=== PATIENT | female | born 1980 | race Two or more races ===

== ENCOUNTER 2024-08-16 10:26 | Emergency (ER) | payer MEDICAID, SELFPAY ==
[2024-08-16 10:28] VITALS: BMI 25.0
[2024-08-16 10:44] VITALS: BP 100/72; PULSE 88; RESP 19; TEMP 37.2; O2SAT 99
[2024-08-16 10:45] VITALS: BMI 22.5
[2024-08-16 11:48] LABS: Strep A Rapid Negative (Negative)
--- NOTE | 2024-08-16 12:58 | EDNOTE_ITS ---
<Statement entered by Annmarie Dove MD - 08/17/24 07:39> As co-signing physician, I was present and available for consult prn. I concur with the plan and care as documented by the midlevel provider. Upper Respiratory Inf. RME/HPI General Chief Complaint: Flu Like Symptoms Stated Complaint: COUGH, CHILL, BODY ACHES Time Seen by Provider: 08/16/24 10:36 Source: patient Arrival date/time: 08/16/24 10:26 This is a 43-year-old female presents to the emergency department with complaints of intermittent cough, body aches for 1 day. Does report her child was sick with similar symptoms. Denies shortness of breath, wheezing no fever. Mode of arrival: ambulatory Limitations: no limitations Related Data Home Medications ?Medication ?Instructions ?Recorded ?Confirmed metformin 850 mg tablet 850 mg PO BID Diabetes #0 ta bs 11/07/14 (Glucophage) insulin glargine 100 unit/mL 6 unit subcut HS Diabetes #0 vials 12/09/14 subcutaneous solution (Lantus U-100 Insulin) Vitamin * 1 tab PO QDAY #0 tabs ferrous sulfate 325 mg (65 mg 325 mg PO QDAY #0 tabs 0 03/11/15 iron) tablet (Feosol) Previous Rx's ?Medication ?Instructions ?Recorded ibuprofen 400 mg tablet 800 mg (2 x 400 mg) PO Q8HR PRN 04/22/15 Patient rated pain 3 to 6 #30 tabs Cyclobenzaprine * (FLEXERIL *) 10 mg PO Q8HR PRN spasm #20 tabs 10/22/15 ibuprofen 600 mg tablet 600 mg PO Q6HR PRN PAIN #60 tabs 10/22/15 tramadol 50 mg tablet (Ultram) 50 mg PO Q6HR PRN sever e pain #30 10/22/15 tabs naproxen 500 mg tablet 500 mg PO BID PRN pain #30 t abs 03/09/23 azithromycin 250 mg tablet 250 mg PO QDAY 5 days #6 ta bs 08/16/24 Allergies Allergy/AdvReac Type Severity Reaction Status Date / Time vancomycin Allergy Intermediate Rash Verified 08/16/24 10:27 Review of Systems Review of Systems Systems Reviewed: All systems reviewed, normal except as documented Narrative Review of Systems: Gen: No fever, no chills, no weight loss, positive body aches EYES: No discharge, no visual changes, no pain HEENT: No ear pain, positive congestion, no sore throat PULM: No shortness of breath, positive cough, no congestion CV: No chest pain, no dyspnea on exertion, no palpitations GI: No nausea, no vomiting, no diarrhea, no pain, no constipation : No frequency, no urgency, no dysuria Musc/skel: No joint pain, no back pain Skin: No rash Psyc: No hallucinations, no depression Heme/Lymph: No easy bleeding or bruising tendencies Neuro: No weakness, no headache ED Exam General Limitations: Present no limitations General appearance: Present alert and in no apparent distress Head Head exam: Present atraumatic Eye Eye exam: Present normal appearance, PERRL and EOMI ENT ENT exam: Present normal exam, normal oropharynx and mucous membranes moist Neck Neck exam: Present normal inspection, full ROM and trachea midline Chest Chest inspection: Present normal inspection and symmetric chest wall rise Respiratory Respiratory exam: Present normal lung sounds bilaterally Cardiovascular Cardiovascular exam: Present regular rate, normal rhythm and normal heart sounds Abdominal Exam Abdominal exam: Present soft and normal bowel sounds Extremities Exam Extremities exam: Present normal inspection and full ROM Back Exam Back exam: Present normal inspection and full ROM Neurological Exam Neurological exam: Present alert, oriented X3 and CN II-XII intact Psychiatric Psychiatric exam: Present normal affect and normal mood Skin Skin exam: Present warm, dry, intact and normal color Course Quality Measures none Orders Category Date Time Status Bedside Influenza A&B Antigen Test NOW Care 08/16/24 10:57 Completed Strep A Rapid Stat Lab 08/16/24 11:00 Completed Vital Signs Vital signs: Vital Signs Temperature 99.0 F 08/16/24 10:44 Pulse Rate 88 08/16/24 10:44 Respiratory Rate 19 08/16/24 10:44 Blood Pressure 100/72 08/16/24 10:44 Pulse Oximetry (%) 99 08/16/24 10:44 Oxygen Delivery Method Room Air 08/16/24 10:44 Upper Respiratory Infection MDM Narrative MDM Narrative:: Patient symptoms consistent with upper respiratory infection. [id number] negative for COVID, influenza A and B. Discussed that viral URIs are a self- limiting disease, and can taking up to 2 weeks to resolve. Ibuprofen prn fevers. Fluids, soups, tea, honey advised. Use humidifier at night. Patient does not appear septic or toxic. Vital signs stable. Advise patient if symptoms do no improved or worsen to return to the emergency room. Patient data External records reviewed:: [facility] previous records Clinical information provided by:: patient and parent Social determinants that could affect healthcare access:: none Patient has the following chronic illnesses:: None on How is presenting disease/condition affected by chronic disease/condition?: no chronic disease Evaluation data The following diagnostics were reviewed and interpreted by me:: lab results Lab and/or radiology exams considered but not ordered:: No Interpretation Summary: Bedside strep and influenza negative Medications / Prescriptions Medications or Prescriptions considered but not ordered:: Considered Medication administrations:: None Consultations Consultation(s) initiated? (list below): No Diagnosis Upper Respiratory Differential Diagnosis: upper respiratory infection, viral infection, bronchitis, influenza and pharyngitis Most likely diagnosis given after review of the tests above:: URI Admission Indicated Admission indicated?: not indicated Admission Request Was there a request for admission?: No Disposition Plan Disposition Plan: Discharge Discharge Attestation Discharge Attestation: The patient and all family members were given an opportunity to ask questions and understood the discharge instructions. Discharge instructions specifically effects, indications for sooner follow up or return to the emergency department, and the expected course of current diagnosis. Patient condition: Stable Discharge Plan Plan Patient Disposition: HOME (Self Care) Patient condition on transfer: Stable Prescriptions/Referrals Prescriptions/Med Rec: New azithromycin 250 mg tablet 250 mg PO QDAY 5 Days Qty: 6 0RF Rx Instructions: 500 mg p.o. day 1, 250 mg p.o. daily for 4 days No Action metformin [Glucophage] 850 MG tablet 850 mg PO BID Qty: 0 insulin glargine [Lantus U-100 Insulin] 100 U/ML solution 6 unit Sub-Q HS Qty: 0 ferrous sulfate [Feosol] 1 TAB tablet 325 mg PO QDAY Qty: 0 Vitamin * 1 EACH tablet 1 tab PO QDAY Qty: 0 ibuprofen 400 MG tablet 800 mg PO Q8HR PRN (Reason: Patient rated pain 3 to 6) Qty: 30 0RF tramadol [Ultram] 50 MG tablet 50 mg PO Q6HR PRN (Reason: severe pain) Qty: 30 0RF Rx Instructions: FOR PAIN, NOT TO EXCEED 8 TABS IN 24 HRS ibuprofen 600 MG tablet 600 mg PO Q6HR PRN (Reason: PAIN) Qty: 60 0RF Cyclobenzaprine * (FLEXERIL *) 10 MG tablet 10 mg PO Q8HR PRN (Reason: spasm) Qty: 20 0RF naproxen 500 mg tablet 500 mg PO BID PRN (Reason: pain) Qty: 30 0RF Referrals: Robbie Sharpe PA-C [Primary Care Provider] - In 1 week Problem List Clinical Impression: Upper respiratory infection Patient/Caregiver Discharge Instructions Discharge Activity: activity as tolerated Education Materials: Preventing Common Respiratory ... Additional Instructions: Contin?e tomando medicamentos de venta anitha Becky un seguimiento con [facility] m?dico de cabecera. Aumentar la ingesta de l?quidos. Se recomienda aumentar la hidrataci?n, el t? caliente y la sopa de arroz con paramjit pueden ayudar a aliviar el dolor de garganta. Por favor becky un seguimiento con [facility] cl?talha de seguimiento de 3 d?as. Si desarrolla alg?n tipo de dificultad respiratoria o cambio en [facility] condici?n, dir?dylan inmediatamente al departamento de emergencias m?s cercano. [facility] examen de infection de garganta salio NEGATIVA Print Language: Ethiopian Stand Alone Forms: [employer] Award Info., Patient Portal Info Letter PA/ZIGGY Supervising Physician PA/ZIGGY Supervising Physician: Dr. Cano
== END 2024-08-16 14:08 | disposition home or self-care (01) ==
PROVIDERS: Nurse Practitioner Primary Care; Emergency Provider Emergency Medicine; PCP Physician Assistant
DX: J06.9 Acute upper respiratory infection, unspecified (principal)
CPT/HCPCS: 87400; 87651; 99283

== ENCOUNTER 2024-08-18 18:13 | Inpatient (IN) | payer MEDICAID, SELFPAY ==
[2024-08-18 18:14] VITALS: BMI 25.6
[2024-08-18 19:09] VITALS: BP 98/65; PULSE 86; RESP 16; TEMP 36.9; O2SAT 99
--- NOTE | 2024-08-18 19:19 | XR_ITS ---
Examination: Ribs, right, with PA chest, 5 views Technique: Chest PA, RIBS AP, RPO, LPO, AP coned lower ribs 5 views Exam date and time: August hrs. Indications: Patient fell 3 days ago with injury to the right chest right rib pain Findings: 23 mm pulmonary mass indistinct margins left upper lobe Normal heart size No pneumothorax No acute rib fractures Impression: No pneumothorax or pulmonary contusion 23 mm pulmonary mass indistinct margins left upper lobe, differential would include lung cancer Recommend CT chest without intravenous contrast follow-up
--- NOTE | 2024-08-18 19:20 | PD.EDRME ---
Rapid Medical Screening Exam RME Arrival date/time: 08/18/24 18:13 43-year-old female with past medical history of diabetes presents emergency department complaining of right rib pain that worsens with inspiration after suffering a ground-level fall that caused her to land on a wooden board that occurred 3 days ago. Chief Complaint: Fall Time Seen by Provider: 08/18/24 18:50 Vital signs: Vital Signs Temperature 98.5 F 08/18/24 19:09 Pulse Rate 86 08/18/24 19:09 Respiratory Rate 16 08/18/24 19:09 Blood Pressure 98/65 08/18/24 19:09 Pulse Oximetry (%) 99 08/18/24 19:09 Oxygen Delivery Method Room Air 08/18/24 19:09 Vital signs reviewed by provider: Yes
[2024-08-18] MEDS: KETOROLAC INJ 60 MG/2 ML VIAL 30 MG IM (19:30)
--- NOTE | 2024-08-18 21:18 | XR_ITS ---
Examination: CT chest, without intravenous contrast. Sagittal and coronal 2-D reconstructions. Exam date and time: August 18, 2024 at 1002 hrs. Indications: Patient fell today with injury to the chest, chest pain CTDI:vol (mGy) 9.64 DLP: (mGycm) 348 Technique: Multiple 3.0 mm axial sections of the chest to been obtained. Bone and lung density settings are obtained. Sagittal and coronal 2-D reconstructions have been obtained. Low dose protocols were performed. One or more of the following dose reduction techniques were used; automated exposure control, adjustment of the mA and/or KV according to patient size, use of iterative reconstruction technique. Findings: Thoracic aorta pulmonary arteries intact No paratracheal tracheobronchial or bronchopulmonary adenopathy No pneumothorax or pulmonary contusion No hemothorax Thick-walled cavitary mass 26 mm in the left upper lobe No visualized liver or splenic lesion Cholelithiasis Abdominal aorta visualized appears intact No pancreatic mass Ribs intact No renal laceration Manubrium body the sternum thoracic vertebral bodies and ribs appear intact Impression: No pneumothorax pulmonary contusion or hemothorax 26 mm thick-walled cavitary lesion left upper lobe, differential would include infectious processes including tuberculosis, pulmonary neoplasm less likely but not excluded
[2024-08-18 23:31] LABS: Basophils # (Auto) 0.1 Thou/mm3 (0.0-0.2); Basophils % (Auto) 0 % (0-2.5); Eosinophils # (Auto) 0.3 Thou/mm3 (0.0-0.5); Eosinophils % (Auto) 3 % (0-10); Hematocrit 35.6 % (36.0-46.0); Hemoglobin 12.3 g/dL (12.0-16.0); Immature Granulocytes % (Auto) 0 % (0-0); Immature Granulocytes Auto 0.04 Thou/mm3 (0.00-0.00); Lymphocytes # (Auto) 3.5 Thou/mm3 (1.0-4.8); Lymphocytes % (Auto) 29 % (10-50); Mean Corpuscular HGB Conc 34.6 g/dl (31.0-37.0); Mean Corpuscular Hemoglobin 31.9 pg (25.0-35.0); Mean Corpuscular Volume 92 fL (80-100); Monocytes # (Auto) 0.8 Thou/mm3 (0.0-0.8); Monocytes % (Auto) 7 % (0-12); Neutrophils # (Auto) 7.2 Thou/mm3 (1.8-7.7); Neutrophils % (Auto) 61 % (37-80); Nucleated Red Blood Cell % 0 /100 WBC (0); Platelet Count 200 Thou/mm3 (140-440); RDW Standard Deviation 41.8 fL (36.4-46.3); Red Blood Count 3.86 Miln/mm3 (4.00-5.20); White Blood Count 11.8 Thou/mm3 (3.6-11.0)
[2024-08-18 23:55] LABS: Alanine Aminotransferase 103 U/L (10-49); Albumin, Serum 4.1 gm/dL (3.5-5.0); Albumin/Globulin Ratio 1.4 (1.2-2.2); Alkaline Phosphatase 106 U/L (46-116); Anion Gap 8 (7-16); Aspartate Amino Transferase 62 U/L (0-34); BUN/Creatinine Ratio 22 Ratio (12-20); Bilirubin,Total 0.2 mg/dL (0.3-1.2); Blood Urea Nitrogen 13 mg/dL (9-23); Calcium 8.6 mg/dL (8.3-10.6); Calcium (Corrected) 8.6 mg/dL (8.5-10.1); Carbon Dioxide 26.6 mMol/L (20.0-31.0); Chloride 102 mMol/L (98-107); Creatinine (Component) 0.6 mg/dL (0.6-1.3); Glucose 197 mg/dL (74-106); Magnesium 1.7 mg/dL (1.6-2.6); Osmolality,Calculated 278 (275-295); Potassium 3.8 mMol/L (3.4-5.1); Sodium 137 mMol/L (136-145); Total Protein 7.1 gm/dL (5.7-8.2); eGFR > 60 See Note
[2024-08-19] VITALS (10 sets, daily range): BP systolic 109–129; BP diastolic 61–89; PULSE 75–96; RESP 16–99; TEMP 36.2–37; O2SAT 99–100; BMI 23.6
--- NOTE | 2024-08-19 00:18 | PD.EDURI ---
Upper Respiratory Inf. RME/HPI General Chief Complaint: Fall Stated Complaint: RIGHT SIDE BODY PAIN S/P FALL 3 DAYS AGO Time Seen by Provider: 08/18/24 18:50 Source: patient Arrival date/time: 08/18/24 18:13 43-year-old female with past medical history of diabetes presents emergency department complaining of right rib pain that worsens with inspiration after suffering a ground-level fall that caused her to land on a wooden board that occurred 3 days ago. Patient also endorses subjective fevers and chills for over a week. Patient reports has lost weight after starting diabetes medication by her weight fluctuates. Patient is unsure if she has received BCG vaccine but reports was born in [place]. Patient denies any history of TB exposure or TB infection that she knows of. Mode of arrival: ambulatory Limitations: no limitations RME / HPI RME / HPI Narrative: 08/18/24 18:13 43-year-old female with past medical history of diabetes presents emergency department complaining of right rib pain that worsens with inspiration after suffering a ground-level fall that caused her to land on a wooden board that occurred 3 days ago. Related Data Home Medications ?Medication ?Instructions ?Recorded ?Confirmed metformin 850 mg tablet 850 mg PO BID Diabetes #0 tabs 11/07/14 (Glucophage) insulin glargine 100 unit/mL 6 unit subcut HS Diabetes #0 vials 12/09/14 subcutaneous solution (Lantus U-100 Insulin) Vitamin * 1 tab PO QDAY #0 tabs 03/11/15 ferrous sulfate 325 mg (65 mg 325 mg PO QDAY #0 tabs 03/11/15 iron) tablet (Feosol) Previous Rx's ?Medication ?Instructions ?Recorded ibuprofen 400 mg tablet 800 mg (2 x 400 mg) PO Q8HR PRN 04/22/15 Patient rated pain 3 to 6 #30 tabs Cyclobenzaprine * (FLEXERIL *) 10 mg PO Q8HR PRN spasm #20 tabs 10/22/15 ibuprofen 600 mg tablet 600 mg PO Q6HR PRN PAIN #60 tabs 10/22/15 tramadol 50 mg tablet (Ultram) 50 mg PO Q6HR PRN severe pain #30 10/22/15 tabs naproxen 500 mg tablet 500 mg PO BID PRN pain #30 tabs 03/09/23 azithromycin 250 mg tablet 250 mg PO QDAY 5 days #6 tabs 08/16/24 Allergies Allergy/AdvReac Type Severity Reaction Status Date / Time vancomycin Allergy Severe Rash Verified 08/18/24 18:17 Review of Systems Review of Systems Systems Reviewed: All systems reviewed, normal except as documented Constitutional Constitutional: Reports system reviewed and no additional complaints, except as documented, Denies body ache(s), Reports chills, Reports fever(s) and Reports weight loss Eyes Eyes: Reports system reviewed and no additional complaints, except as documented and Denies change in vision ENT Ears, Nose, Mouth, and Throat: Reports system reviewed and no additional complaints, except as documented, Denies disequilibrium, Denies dizziness, Denies sore throat and Denies vertigo Cardiovascular Cardiovascular: Reports system reviewed and no additional complaints, except as documented, Denies chest pain, Denies dyspnea and Reports other (Rib pain) Respiratory Respiratory: Reports system reviewed and no additional complaints, except as documented, Denies chest congestion, Denies cough and Denies dyspnea Gastrointestinal Gastrointestinal: Reports system reviewed and no additional complaints, except as documented, Denies abdominal pain, Denies nausea and Denies vomiting Musculoskeletal Musculoskeletal: Reports system reviewed and no additional complaints, except as documented, Denies abnormal gait and Denies arthralgias Integumentary/Breasts Skin/Breast: Reports system reviewed and no additional complaints, except as documented, Denies erythema, Denies rash and Denies wounds Neurologic Neurologic: Reports system reviewed and no additional complaints, except as documented, Denies abnormal gait, Denies disequilibrium, Denies dizziness and Denies vertigo Past Medical History Social History SMOKING STATUS: Never smoker ED Exam General Limitations: Present no limitations General appearance: Present alert and in no apparent distress Head Head exam: Present atraumatic Eye Eye exam: Present normal appearance, PERRL and EOMI ENT ENT exam: Present normal exam, normal oropharynx and mucous membranes moist Neck Neck exam: Present normal inspection, full ROM and trachea midline Chest Chest inspection: Present normal inspection and symmetric chest wall rise Respiratory Respiratory exam: Present normal lung sounds bilaterally Cardiovascular Cardiovascular exam: Present regular rate, normal rhythm and normal heart sounds Abdominal Exam Abdominal exam: Present soft and normal bowel sounds Extremities Exam Extremities exam: Present normal inspection and full ROM Back Exam Back exam: Present normal inspection and full ROM Neurological Exam Neurological exam: Present alert, oriented X3 and CN II-XII intact Psychiatric Psychiatric exam: Present normal affect and normal mood Skin Skin exam: Present warm, dry, intact and normal color Course Quality Measures none Orders Category Date Time Status Bedside COVID-19 Antigen Test NOW Care 08/18/24 23:14 Active Bedside Influenza A&B Antigen Test NOW Care 08/18/24 23:[address] chest wo con Stat Exams 08/18/24 21:18 Completed XR ribs RT min 3V w CXR1V Stat Exams 08/18/24 19:19 Completed CBC Stat Lab 08/18/24 23:09 Completed CMP [Comprehensive Metabolic Panel] Stat Lab 08/18/24 23:09 Completed Cocci Serology IgM with reflex to IgG [Cocci Serology, Lab 08/18/24 23:09 Received Unk History] Stat Mag [Magnesium] Stat Lab 08/18/24 23:09 Completed Ketorolac Inj [Toradol Inj] Med 08/18/24 19:19 Discontinued 30 mg IM X1 ONE Vital Signs Vital signs: Vital Signs Temperature 98.5 F 08/18/24 19:09 Pulse Rate 86 08/18/24 19:09 Respiratory Rate 16 08/18/24 19:09 Blood Pressure 98/65 08/18/24 19:09 Pulse Oximetry (%) 99 08/18/24 19:09 Oxygen Delivery Method Room Air 08/18/24 19:09 99% room air within normal limits Upper Respiratory Infection MDM Narrative MDM Narrative:: 43-year-old female with past medical history of diabetes presents emergency department complaining of right rib pain that worsens with inspiration after suffering a ground-level fall that caused her to land on a wooden board that occurred 3 days ago. Patient also endorses subjective fevers and chills for over a week. Patient reports has lost weight after starting diabetes medication by her weight fluctuates. Patient is unsure if she has received BCG vaccine but reports was born in [place]. Patient denies any history of TB exposure or TB infection that she knows of. CBC mild leukocytosis 11.8. CMP mild elevation of AST and ALT. CT of chest 26 mm cavitary lesion suspicious for infectious process such as tuberculosis. Cocci serology still pending. On-call hospitalist Dr. Enriquez consulted and agrees to admit patient for TB rule out. Patient stable at time of admission. Patient data External records reviewed:: [facility] previous records Clinical information provided by:: patient Social determinants that could affect healthcare access:: none Patient has the following chronic illnesses:: See chart How is presenting disease/condition affected by chronic disease/condition?: uneffected by Evaluation data The following diagnostics were reviewed and interpreted by me:: lab results and radiology exam(s) Lab and/or radiology exams considered but not ordered:: Ordered Interpretation Summary: Interpreted by me Medications / Prescriptions Medications or Prescriptions considered but not ordered:: Ordered Medication administrations:: Medication Administration History Discontinued Medications Ketorolac Tromethamine (Ketorolac Inj 60 Mg/2 Ml Vial) 30 mg IM X1 ONE Stop: 08/18/24 19:20 Last Admin: 08/18/24 19:30 Dose: 30 mg Documented By: CVL Given Consultations Consultation(s) initiated? (list below): Yes Consultation #1 (Physician, Specialty, Details): Dr. Enriquez Diagnosis Upper Respiratory Differential Diagnosis: upper respiratory infection, viral infection, bronchitis, influenza and pharyngitis Most likely diagnosis given after review of the tests above:: Pulmonary cavitary lesion Admission Indicated Admission indicated?: indicated Admission Request Was there a request for admission?: Yes Admission Attestation Admission request attestation: Discussed case with [Dr. Enriquez] from Hospitalist service regarding admission. Discussed patients ED course, exam findings, labs, and radiology results. The Hospitalist [agrees] to accept the patient for admission. Disposition Plan Disposition Plan: Admit Discharge Plan Plan Patient Disposition: Admit Acute Care w/in Hospital Disposition Comment: Stable Prescriptions/Referrals Prescriptions/Med Rec: No Action metformin [Glucophage] 850 MG tablet 850 mg PO BID Qty: 0 insulin glargine [Lantus U-100 Insulin] 100 U/ML solution 6 unit Sub-Q HS Qty: 0 ferrous sulfate [Feosol] 1 TAB tablet 325 mg PO QDAY Qty: 0 Vitamin * 1 EACH tablet 1 tab PO QDAY Qty: 0 ibuprofen 400 MG tablet 800 mg PO Q8HR PRN (Reason: Patient rated pain 3 to 6) Qty: 30 0RF tramadol [Ultram] 50 MG tablet 50 mg PO Q6HR PRN (Reason: severe pain) Qty: 30 0RF Rx Instructions: FOR PAIN, NOT TO EXCEED 8 TABS IN 24 HRS ibuprofen 600 MG tablet 600 mg PO Q6HR PRN (Reason: PAIN) Qty: 60 0RF Cyclobenzaprine * (FLEXERIL *) 10 MG tablet 10 mg PO Q8HR PRN (Reason: spasm) Qty: 20 0RF naproxen 500 mg tablet 500 mg PO BID PRN (Reason: pain) Qty: 30 0RF azithromycin 250 mg tablet 250 mg PO QDAY 5 Days Qty: 6 0RF Rx Instructions: 500 mg p.o. day 1, 250 mg p.o. daily for 4 days Referrals: No Primary/Family,Physician [Primary Care Provider] - In 1 week Problem List Clinical Impression: Pulmonary cavitary lesion Patient/Caregiver Discharge Instructions Print Language: Arabic Stand Alone Forms: [employer] Award Info., Patient Portal Info Letter PA/SYSTEMS MANAGEMENT CONSULTANT Supervising Physician PA/SYSTEMS MANAGEMENT CONSULTANT Supervising Physician: Dr. Michaud
--- NOTE | 2024-08-19 00:19 | EKG_ITS ---
[facility] Test Date: 2024-08-19 Pat Name: PEPE DIAZ Department: Room: - Gender: Female Hospitality Coordinator: : 1980 Requested By: Alie Enriquez Order Number: [id number] Reading MD: Alie Enriquez Measurements Intervals [place]earing Rate: 90 P: 66 ME: 172 QRS: 70 QRSD: 75 T: 39 QT: 359 QTc: 441 Interpretive Statements SINUS RHYTHM Compared to ECG 03/09/2023 17:04:50 No significant changes /[id number]/S0/[id number]
--- NOTE | 2024-08-19 00:39 | PD.RESHP ---
Documentation for date of: 08/19/24 HPI History of Present Illness Chief complaint: Cavitary lesion History of present illness: Ms. Whitten is a 43-year-old female with past medical history of diabetes mellitus who presented to [facility] emergency department from home on 08/18/2024 complaining of right rib pain that worsens with inspiration after suffering a ground-level fall, denies hitting head. According to the patient she fell 3 days ago when she landed on a wooden board ever since then she has been having chest pain in the ED patient had a chest x-ray done to rule out rib fracture which showed an incidental finding of 23 mm pulmonary mass indistinct margins left upper lobe and follow-up CT scan of the chest showed 26 mm thick-walled cavitary lesion left upper lobe with differential being tuberculosis. Patient reported fever, chills for about a week, after her got sick, had flulike symptoms. Patient denies any fevers or chills before the week, patient reports weight loss after starting her diabetes medications but reports that her weight fluctuates, denies decrease in appetite, night sweats. Patient was born in [place], denies any recent travel, reports and brother recently travel to [place]. Patient denies any history of TB exposure or TB infection to the best of her knowledge. Patient otherwise denies any other symptoms or complaints. ED Course: ED Vitals: On presentation in ED BP 98/65, P86, RR 16, temp 98.5, O2 sat 99 on room air ED Labs: ED labs significant for WBC 11.8, RBC 3.86, hematocrit 35.6, glucose 197, AST 62, ALT 103, cocci IgM pending ED Imaging:Rib x-ray in ED significant for 23 mm pulmonary mass indistinct margins left upper lobe, CT chest significant for 26 mm thick-walled cavitary lesion left upper lobe. ED Treatment: Patient was given Toradol 30 x 1 in the ED Review of Systems Review of Systems Narrative Review of Systems: ROS: -CONSTITUTIONAL: Positive for weight loss, fever and chills. -HEENT: Denies changes in vision and hearing. -RESPIRATORY: Denies SOB and cough. -CV: Denies palpitations. Positive for chest pain, noncardiac. -GI: Denies abdominal pain, nausea, vomiting,constipation and diarrhea. -: Denies dysuria and urinary frequency. -MSK: Denies myalgia and joint pain. -SKIN: Denies rash and pruritus. -NEUROLOGICAL: Denies headache and syncope. -PSYCHIATRIC: Denies recent changes in mood. Denies anxiety and depression. 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 Conversational and non-toxic appearing. HEENT: Normocephalic, atraumatic, mucous membranes moist. Heart: Regular rate and rhythm, no murmurs. Lungs: Clear to auscultation with no wheezing or crackles. Abdomen: Soft, nondistended, nontender, positive bowel sounds. ?No guarding or rebound tenderness. Neurologic: Alert and oriented x3, no gross neurological deficit, and patient able to move all 4 extremities. Extremities: No edema. Skin: No rash or ecchymoses. Results: Labs 08/18/24 23:09 08/18/24 23:09 Labs: Short CBC 08/18/24 Range/Units 23:09 WBC 11.8 H (3.6-11.0) Thou/mm3 Hgb 12.3 (12.0-16.0) g/dL Hct 35.6 L (36.0-46.0) % Plt Count 200 (140-440) Thou/mm3 BMP 08/18/24 23:09 Sodium 137 Potassium 3.8 Chloride 102 Carbon Dioxide 26.6 BUN 13 Creatinine 0.6 Glucose 197 H Calcium 8.6 Liver Function 08/18/24 Range/Units 23:09 Total Bilirubin 0.2 L (0.3-1.2) mg/dL AST 62 H (0-34) U/L ALT 103 H (10-49) U/L Alkaline Phosphatase 106 (46-116) U/L Albumin 4.1 (3.5-5.0) gm/dL Quality Measures Quality Measures none Medications Home Medications and Allergies Home Medications ?Medication ?Instructions ?Recorded ?Confirmed ?Type metformin 850 mg tablet 850 mg PO BID Diabetes #0 tabs 11/07/14 History (Glucophage) insulin glargine 100 unit/mL 6 unit subcut HS Diabetes #0 vials 12/09/14 History subcutaneous solution (Lantus U-100 Insulin) Vitamin * 1 tab PO QDAY #0 tabs 03/11/15 History ferrous sulfate 325 mg (65 mg 325 mg PO QDAY #0 tabs 03/11/15 History iron) tablet (Feosol) Allergies Allergy/AdvReac Type Severity Reaction Status Date / Time vancomycin Allergy Severe Rash Verified 08/18/24 18:17 Visit Medications Acetaminophen (Acetaminophen 325 Mg Tablet) 650 mg PO Q6H PRN PRN Reason: Fever >101.5 Stop: 09/18/24 00:15 Dextrose (Dextrose 50%-Water Inj 50 Ml Syringe) 25 ml IV Q15MIN PRN PRN Reason: BG 50-70 responsive npo pt Stop: 09/18/24 00:15 Dextrose (Dextrose 50%-Water Inj 50 Ml Syringe) 50 ml IV Q15MIN PRN PRN Reason: BG <50 OR BG <70 & pt unresponsive Stop: 09/18/24 00:15 Glucagon (Glucagon Inj 1 Mg Vial) 1 mg IM Q15MIN PRN PRN Reason: BG <70, and no IV access Heparin Sodium (Porcine) (Heparin Sod Inj 5000 Unit/Ml Vial) 5,000 unit SC Q12H MARGARITO Stop: 09/02/24 08:59 Insulin Human Lispro (Insulin Lispro (Admelog) 1 Unit/0.01 Ml Unit) 0 unit SC AC MARGARITO; Protocol Stop: 09/18/24 07:29 Sennosides (Senna Tablet) 1 tab PO QDAY PRN; Protocol PRN Reason: constipation Stop: 09/18/24 00:15 Discontinued Medications Ketorolac Tromethamine (Ketorolac Inj 60 Mg/2 Ml Vial) 30 mg IM X1 ONE Stop: 08/18/24 19:20 Last Admin: 08/18/24 19:30 Dose: 30 mg Sodium Chloride (Sodium Chloride Rt 10% 15 Ml Nebu) 5 ml INH X1 ONE Stop: 08/19/24 00:22 Assessment & Plan Plan Assessment and plan: Summary: Ms. Whitten is a 43-year-old female with past medical history of diabetes mellitus who presented to [facility] emergency department from home on 08/18/2024 complaining of right rib pain that worsens with inspiration after suffering a ground-level fall, denies hitting head. Patient admitted to rule out tuberculosis due to finding on CT chest of Cavitary Lesion Left Upper Lobe #Cavitary Lesion Left Upper Lobe #TB rule out Patient reported fever, chills for about a week, patient reports weight loss after starting her diabetes medications but reports that her weight fluctuates, denies decrease in appetite, night sweats. Patient was born in [place], denies any recent travel, reports and brother recently travel to [place]. Rib x-ray in ED significant for 23 mm pulmonary mass indistinct margins left upper lobe, CT chest significant for 26 mm thick-walled cavitary lesion left upper lobe. Plan: -Follow cocci serology -Ordered AFB x 3 -Ordered QuantiFERON -Tylenol as needed for fever and pain # Type 2 diabetes mellitus Patient on Janumet at home for diabetes management Plan: -Sliding scale insulin -Monitor fingersticks -Follow hemoglobin A1c in a.m. -Hypoglycemia protocol in place #Transaminitis AST 62, ALT 103 on admission -Follow CMP in a.m. DVT prophylaxis: Heparin every 12 hours GI prophylaxis: Not Indicated Diet: Carb Consitent Lines: Peripheral IV Code status: Full Code Case discussed with Attending Dr. Gaona. Alie Enriquez PGY1 Disclaimer: This note was dictated by speech recognition. Minor errors in hospital personnel director may be present due to voice recognition software. Attending Provider Attestation/Addendum I have examined the patient, reviewed labs and imaging findings, discussed the case with the resident(s), and reviewed entered orders. I agree with the plan of care as outlined in this note, with these additional summaries/recommendations: Patient is a 43-year-old female with a medical history of diabetes mellitus type 2 who presented to [facility] emergency department on 08/19/2024 with chief complaint of right rib pain after a ground-level mechanical fall 3 days prior. Patient denies loss of consciousness or hitting her head. The pain has worsened with breathing. Patient was found to have a cavitary lesion on imaging and thus hospitalist team consulted for continuation of care. #Cavitary Lesion #R/O Active TB CT Chest: 26 mm thick walled cavitary lesion left upper lobe Most likely infectious versus less likely pulmonary neoplasm Patient does report recent fever/chills but denies hemoptysis and weight loss Plan: Order cocci serology. Order AFB x 3 & Quantiferon. Isolation precautions. We will start RIPE therapy if AFBs return positive. #Right Chest Pain 2/2 to ground level-mechanical fall 3 days prior Rib X-ray negative for acute rib fracture Plan: Received Toradol in ED. As needed pain management. #Diabetes Mellitus Type II Order A1C, no previous A1c available on file Plan: Start insulin sliding scale with Accu-Cheks. Target blood sugar of 140-180. Diabetic education. Dr. Gaona
--- NOTE | 2024-08-19 01:54 | PC.NURSE ---
REPORT GIVEN TO TAVARES STEWART AT MED/SURG.
[2024-08-19] MEDS: SODIUM CHLORIDE RT 10% 15 ML NEBU 5 ML INH ×2 (04:01→10:09)
--- NOTE | 2024-08-19 04:20 | PC.RT ---
RT in room to collect sputum for AFB send put. pt stated she has no phlegm upon coughing, educated on sodium chloride induction. Medication administered. Pt continued to have poor yield ofsputum despited medication. Specimen cup left bedside with pt along with collection instructions for pt. RN notified.
[2024-08-19 05:40] LABS: Quantiferon-TB* See Sep Rpt
[2024-08-19 05:41] LABS: Basophils # (Auto) 0.1 Thou/mm3 (0.0-0.2); Basophils % (Auto) 1 % (0-2.5); Eosinophils # (Auto) 0.2 Thou/mm3 (0.0-0.5); Eosinophils % (Auto) 2 % (0-10); Hematocrit 32.7 % (36.0-46.0); Hemoglobin 11.4 g/dL (12.0-16.0); Immature Granulocytes % (Auto) 0 % (0-0); Immature Granulocytes Auto 0.04 Thou/mm3 (0.00-0.00); Lymphocytes % (Auto) 29 % (10-50); Mean Corpuscular HGB Conc 34.9 g/dl (31.0-37.0); Mean Corpuscular Hemoglobin 32.5 pg (25.0-35.0); Mean Corpuscular Volume 93 fL (80-100); Monocytes # (Auto) 0.6 Thou/mm3 (0.0-0.8); Monocytes % (Auto) 5 % (0-12); Neutrophils # (Auto) 6.7 Thou/mm3 (1.8-7.7); Neutrophils % (Auto) 63 % (37-80); Nucleated Red Blood Cell % 0 /100 WBC (0); Platelet Count 166 Thou/mm3 (140-440); RDW Standard Deviation 41.9 fL (36.4-46.3); Red Blood Count 3.51 Miln/mm3 (4.00-5.20); White Blood Count 10.6 Thou/mm3 (3.6-11.0)
[2024-08-19 07:15] LABS: Alanine Aminotransferase 92 U/L (10-49); Albumin, Serum 3.7 gm/dL (3.5-5.0); Albumin/Globulin Ratio 1.3 (1.2-2.2); Alkaline Phosphatase 105 U/L (46-116); Anion Gap 8 (7-16); Aspartate Amino Transferase 58 U/L (0-34); BUN/Creatinine Ratio 22 Ratio (12-20); Bilirubin,Total 0.2 mg/dL (0.3-1.2); Blood Urea Nitrogen 11 mg/dL (9-23); Calcium 8.2 mg/dL (8.3-10.6); Calcium (Corrected) 8.4 mg/dL (8.5-10.1); Carbon Dioxide 23.8 mMol/L (20.0-31.0); Cardiac Risk Estimate 3.5 RATIO (3.7-5.6); Chloride 105 mMol/L (98-107); Cholesterol 136 mg/dL (132-200); Creatinine (Component) 0.5 mg/dL (0.6-1.3); Estimated Creatinine Clearance 117.1 mL/min (>60); Globulin 2.8 gm/dL (2.3-3.5); Glucose 204 mg/dL (74-106); HDL Cholesterol 39 mg/dL (40-60); LDL Cholesterol,Calculated 63 mg/dL (0-130); Magnesium 1.6 mg/dL (1.6-2.6); Osmolality,Calculated 279 (275-295); Potassium 3.4 mMol/L (3.4-5.1); Sodium 137 mMol/L (136-145); Thyroid Stimulating Hormone 2.48 uIU/mL (0.55-4.78); Total Protein 6.5 gm/dL (5.7-8.2); Triglycerides 171 mg/dL (30-150); eGFR > 60 See Note
[2024-08-19] MEDS: INSULIN LISPRO (AdmeLOG) 1 UNIT/0.01 ML UNIT SC ×3 (07:44→18:10)
[2024-08-19 07:52] LABS: Glucose Estimated Average 232 mg/dL (80-131); Hemoglobin A1C 9.7 % Hgb (4.8-6.0)
--- NOTE | 2024-08-19 09:02 | ESPR_ITS ---
Subjective Subjective Interval history: cavitary pulm process. statistically likely to be cocci Exam Vital Signs Temp Pulse Resp BP Pulse Ox O2 Del Method 97.6 F 76 18 109/61 99 Room Air 08/19/24 08:00 08/19/24 08:00 08/19/24 08:00 08/19/24 08:00 08/19/24 08:00 08/19/24 08:00 Narrative Exam benign exam no rashes. no EN. Objective - Internal Medicine Labs 08/19/24 04:39 08/19/24 04:39 Labs: Laboratory Results - last 24 hr 08/18/24 08/19/24 23:09 04:39 WBC 11.8 H 10.6 RBC 3.86 L 3.51 L Hgb 12.3 11.4 L Hct 35.6 L 32.7 L MCV 92 93 MCH 31.9 32.5 MCHC 34.6 34.9 RDW Std Deviation 41.8 41.9 Plt Count 200 166 D Neut % (Auto) 61 63 Lymph % (Auto) 29 29 [place] % (Auto) 7 5 Eos % (Auto) 3 2 Baso % (Auto) 0 1 Neut # (Auto) 7.2 6.7 Lymph # (Auto) 3.5 3.0 [place] # (Auto) 0.8 0.6 Eos # (Auto) 0.3 0.2 Baso # (Auto) 0.1 0.1 Immature Gran # (Auto) 0.04 H 0.04 H Absolute Nucleated RBC 0.00 0.00 Immature Gran % 0 0 Nucleated RBC % 0 0 Sodium 137 137 Potassium 3.8 3.4 Chloride 102 105 Carbon Dioxide 26.6 23.8 Anion Gap 8 8 BUN 13 11 Creatinine 0.6 0.5 L Estim Creat Clear Calc 108.0 117.1 eGFR > 60 > 60 BUN/Creatinine Ratio 22 H 22 H Glucose [address] Glu mg/dL 232 H Hemoglobin A1c 9.7 H Calculated Osmolality 278 279 Calcium 8.6 8.2 L Corrected Calcium 8.6 8.4 L Magnesium 1.7 1.6 Total Bilirubin 0.2 L 0.2 L AST 62 H 58 H ALT 103 H 92 H Alkaline Phosphatase 106 105 Total Protein 7.1 6.5 Albumin 4.1 3.7 Globulin 3.0 2.8 Albumin/Globulin Ratio 1.4 1.3 Triglycerides 171 H Cholesterol 136 LDL Cholesterol, Calc 63 HDL Cholesterol 39 L Cholesterol/HDL Ratio 3.5 L TSH 2.48 Assessment & Plan A&P Narrative cavitary pulm process w/o rash of 1 weeks duration. cocci vs tb vs other. including regular pneumonia dm II, a1c 9.7 if cocci pos, then ok to add flucon to regimen and stop cefuroxime. if cocci neg, then we have to pursue tb if tb neg, we can sunil other concerns. will likely see again on mon. Time Spent With Patient Time: Total time spent is greater than 50% in coordination of care (as documented) at patient's floor/unit and/or counseling patient:
[2024-08-19] MEDS: HEPARIN SOD INJ 5000 UNIT/ML VIAL SC ×2 (10:00→21:35)
[2024-08-19 10:33] LABS: Cult AFB Sendout- Sputum* See Sep Rpt
--- NOTE | 2024-08-19 10:41 | ESCONSULT_ITS ---
<Statement entered by Dieter Barnes MD - 08/20/24 19:38> pt seen with resident. all findings confirmed. HPI Data of Consult Consult date: 08/19/24 Requesting Physician: Nigel Reid MD Admitting Provider: Michael Gaona MD Attending Provider: Nigel Reid MD Primary Care Provider: Physician No Primary/Family Consult Narrative Reason for consult: Cavitary pulmonary lesions History of present illness: Ms. Whitten is a 43-year-old female with past medical history of diabetes mellitus who presented to [facility] emergency department from home on 08/18/2024 complaining of right rib pain that worsens with inspiration after suffering a ground-level fall, denies hitting head. She fell 3 days ago when she landed on a wooden board ever since then she has been having chest pain. In the ED patient had a chest x-ray done to rule out rib fracture which showed an incidental finding of 23 mm pulmonary mass indistinct margins left upper lobe and follow-up CT scan of the chest showed 26 mm thick-walled cavitary lesion left upper lobe with differential being tuberculosis. Patient reported fever, chills for about a week, after her got sick, had flu like symptoms. Patient denies any fevers or chills before the week. She denies any weight changes and denies any night sweats or appetite loss. She was born in [place], denies any recent travel. Her and brother recently traveled to [place]. Denied any history of TB exposure in the past. In the ED, patient was mildly hypotensive, afebrile saturating well on room air. Labs were significant for leukocytosis, mildly elevated blood glucose. Rib x-ray showed 23 mm pulmonary mass indistinct margins left upper lobe. CT chest was also significant for 26 mm thick walled cavitary lesion left upper lobe. PMH: Diabetes PSH: Nonsignificant Allergies: Vancomycin causes rash Family history nonsignificant Home medications: Zithromax and Janumet 08/19/24: Patient was seen and examined at the bedside. Patient reported that she had fever/chills a week prior to admission. She lives in town here. Possibility of cocci is more as compare to TB however rec to rule out both causes. Cavitary pulmonary lesions can be seen with Community acquired pneumonia as well. Given A1c of 9.7 patient has a high risk of having cryptococcal and aspergillosis infection. Consider sputum induction in case needed for sputum AFB. -->We recommended to start cefuroxime 500 mg BID for 7 days given suspicious for CAP, agreeable to evaluate for TB including Quant TB/AFB and cocci serology.Ordered other infectious workup including hep panel and HIV. Will follow up with results. 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 HEENT: NC, AT. MMM. EOMI, clear conjunctiva, oropharynx clear. NECK: Supple without lymphadenopathy. No stiffness or restricted ROM. HEART: Regular rate and regular rhythm, normal S1/S2, no m/r/g LUNGS: CTAB, moving air well. No crackles or wheezes are heard. ABDOMEN: Soft, nontender, nondistended with good bowel sounds heard. BACK: No CVAT, no obvious deformity. EXTREMITIES: Without cyanosis, clubbing or edema. NEUROLOGICAL: Grossly nonfocal. Alert and oriented, moving all 4 extremities. CN not formally tested but appear grossly intact. Observed to ambulate with normal gait. Skin: Warm and dry without any rash. Psych: appropriate mood and effect Results Labs 08/19/24 04:39 08/19/24 04:39 Labs: Short CBC 08/18/24 08/19/24 Range/Units 23:09 04:39 WBC 11.8 H 10.6 (3.6-11.0) Thou/mm3 Hgb 12.3 11.4 L (12.0-16.0) g/dL Hct 35.6 L 32.7 L (36.0-46.0) % Plt Count 200 166 D (140-440) Thou/mm3 BMP 08/18/24 08/19/24 23:09 04:39 Sodium 137 137 Potassium 3.8 3.4 Chloride 102 105 Carbon Dioxide 26.6 23.8 BUN 13 11 Creatinine 0.6 0.5 L Glucose 197 H 204 H Calcium 8.6 8.2 L Liver Function 08/18/24 08/19/24 Range/Units 23:09 04:39 Total Bilirubin 0.2 L 0.2 L (0.3-1.2) mg/dL AST 62 H 58 H (0-34) U/L ALT 103 H 92 H (10-49) U/L Alkaline Phosphatase 106 105 (46-116) U/L Albumin 4.1 3.7 (3.5-5.0) gm/dL Quality Measures Quality Measures VTE prophylaxis Medications Home Medications and Allergies Home Medications ?Medication ?Instructions ?Recorded ?Confirmed ?Type sitagliptin phosphate 50 1 tab PO BID 08/19/24 History mg-metformin 1,000 mg tablet (Janumet) Allergies Allergy/AdvReac Type Severity Reaction Status Date / Time vancomycin Allergy Severe Rash Verified 08/18/24 18:17 Visit Medications Acetaminophen (Acetaminophen 325 Mg Tablet) 650 mg PO Q6H PRN PRN Reason: Fever >101.5 Stop: 09/18/24 00:15 Cefuroxime Axetil (Cefuroxime Axetil 250 Mg Tablet) 500 mg PO BID [facility] Stop: 08/26/24 20:59 Dextrose (Dextrose 50%-Water Inj 50 Ml Syringe) 25 ml IV Q15MIN PRN PRN Reason: BG 50-70 responsive npo pt Stop: 09/18/24 00:15 Dextrose (Dextrose 50%-Water Inj 50 Ml Syringe) 50 ml IV Q15MIN PRN PRN Reason: BG <50 OR BG <70 & pt unresponsive Stop: 09/18/24 00:15 Glucagon (Glucagon Inj 1 Mg Vial) 1 mg IM Q15MIN PRN PRN Reason: BG <70, and no IV access Heparin Sodium (Porcine) (Heparin Sod Inj 5000 Unit/Ml Vial) 5,000 unit SC Q12H MARGARITO Stop: 09/02/24 08:59 Last Admin: 08/19/24 10:00 Dose: 5,000 unit Insulin Human Lispro (Insulin Lispro (Admelog) 1 Unit/0.01 Ml Unit) 0 unit SC AC MARGARITO; Protocol Stop: 09/18/24 07:29 Last Admin: 08/19/24 07:44 Dose: 1 unit Sennosides (Senna Tablet) 1 tab PO QDAY PRN; Protocol PRN Reason: constipation Stop: 09/18/24 00:15 Discontinued Medications Ketorolac Tromethamine (Ketorolac Inj 60 Mg/2 Ml Vial) 30 mg IM X1 ONE Stop: 08/18/24 19:20 Last Admin: 08/18/24 19:30 Dose: 30 mg Sodium Chloride (Sodium Chloride Rt 10% 15 Ml Nebu) 5 ml INH X1 ONE Stop: 08/19/24 00:22 Last Admin: 08/19/24 04:01 Dose: 5 ml Sodium Chloride (Sodium Chloride Rt 10% 15 Ml Nebu) 5 ml INH X1 ONE Stop: 08/19/24 09:21 Last Admin: 08/19/24 10:09 Dose: 5 ml Assessment & Plan Plan Summary: Ms. Whitten is a 43-year-old female with past medical history of diabetes mellitus who presented with right rib pain that worsens with inspiration after suffering a ground-level fall, denies hitting head. She is admitted to rule out tuberculosis due to finding on CT chest of Cavitary Lesion Left Upper Lobe vs cocci infection. #Cavitary Lesion Left Upper Lobe #TB & cocci rule out vs CAP -Patient reported fever, chills for about a week, patient reports weight loss after starting her diabetes medications but reports that her weight fluctuates, denies decrease in appetite, night sweats. -Patient was born in [place], denies any recent travel, reports and brother recently travel to [place]. -Rib x-ray significant for 23 mm pulmonary mass indistinct margins left upper lobe, -CT chest significant for 26 mm thick-walled cavitary lesion left upper lobe. Plan: -Started Cefuroxime 500 mg BID for total 7 days -cocci serology pending -Pending AFB x 3 and QuantiFERON -Tylenol as needed for fever and pain -Monitor for fever spike and lekocytosis -Ordered Hep panel and HIV serology Rest of the management as per Primary care team. #Type 2 diabetes mellitus #Transaminitis #Leukocytosis -- Plan of care discussed with ID specialist, Dr Cameron Vizcaino MD,PGY2
--- NOTE | 2024-08-19 11:14 | ESCONSULT_ITS ---
RE: PEPE DIAZ : 1980 DATE OF CONSULTATION: 08/19/2024 REFERRING PHYSICIAN: Dr. Gaona. REASON FOR CONSULTATION: Cavitary pulmonary process. HISTORY OF PRESENT ILLNESS: The patient is a 43-year-old diabetic, A1c is 9.7. She has no other health problems and has no renal problems from her diabetes so far. MEDICATIONS: Include only Zithromax and Janumet. SURGICAL HISTORY: limited. . She is 43 years of age. She has no known contacts of TB and TB is statistically less likely here in the [place]. She does speak only [place], which increases her risk because she is an immigrant person and so may be more likely to carry TB. She has never been tested before. ALLERGIES: VANCOMYCIN, CAUSING A RASH. IMMUNIZATIONS: Unavailable. FAMILY HISTORY: Unavailable. SOCIAL HISTORY: Unavailable. PHYSICAL EXAMINATION: GENERAL: The patient is in no distress. There is no cough during the visit. HEENT: Benign. HEART: Benign. LUNGS: Benign. ABDOMEN: Benign. Case discussed with the primary team. ASSESSMENT AND PLAN: Cavitary pulmonary process in a patient who had fallen and injured her right chest. The process appears to be on the left lung region. This is the opposite side of the injury, which was apparently in the right chest. There are no known broken ribs. She has been sick for about a week with nonspecific respiratory symptoms and has no rash. Rashes are commonly seen with Valley Fever. The duration of her illness is relatively short for TB. Capillary pulmonary process can be seen with regular pneumonia, unusual forms of pneumonia as well as particularly Valley Fever and tuberculosis, but occasionally other forms of pneumonia as well. Her A1c is somewhat high, so she is at slightly higher risk for cryptococcal disease and aspergillosis, but not crazy high. In [facility] last year, there were about 500 cases of Valley Fever and about 20 to 25 cases of TB. This makes Valley Fever statistically much more likely, but if her Valley Fever test is positive, she will still need to be ruled out for TB before she can come out of isolation, so please continue try to get sputum and you may need to try sputum reduction. DT: 09:19:03 TT: 10:30:00 Ref: [id number] - TID: [id number] MTDD
--- NOTE | 2024-08-19 11:21 | PC.SS ---
Lilia Whitten is a 43-year-old female admitted to Med-Surg for Cavitary Lesion Left Lung. SS conducted over the phone contact with the patient?s to complete initial assessment and to discuss discharge planning. Otilia Friedman [phone] confirmed demographic information; he identifies himself as the pt surrogate decision maker. Patient resides at home with him. He reprts the pt is independent with her ADLs, at home and does utilize any source of DME. DC options discussed and they wish for the pt to return home. Pts PCP is [facility]. Pharmacy of choice is [facility] on [address]. Pts will provide transportation upon DC. No further intervention required at this time, clinical social worker would be available to address any further concerns. DC Plan: Home Contact: Otilia Friedman [phone] ? PCP: [facility]
--- NOTE | 2024-08-19 11:32 | ESPR_ITS ---
<Statement entered by Noble Reyes MD - 08/19/24 15:47> Senior Resident Attestation: I supervised/discussed management plan with education intern physician Dr. Pedraza, and was involved in the care of this patient. I personally saw and examined the patient and discussed the assessment and plan with the entire medicine team, including my attending. I agree with the assessment and plan as documented. Patient was seen and examined at bedside. She is on isolation. ID was consulted, QuantiFERON and AFB were ordered. Patient was also started on cefuroxime by the ID. Will continue current management and monitor patient, awaiting TB workup. Patient's care was discussed with attending physician, Dr. Reid. Noble Reyes MD PGY-2. Documentation for date of: 08/19/24 Subjective Subjective Interval history: 08/19/2024: Patient examined at bedside today. No acute overnight events. Patient reports that she is feeling okay. She reports she has no smoking history or exposure to tuberculosis. She is unaware of having this possible lung mass. She does confirm working in the [employer]. She did say that she had some fevers recently which was on Monday but they were at night. Denies any weight loss. No complaints at this time. White count 10.6, hemoglobin 11.4, sodium of 137, potassium 3.4, bicarb 24, BUN/creatinine 11 and 0.5 respectively, magnesium 1.6, AST ALT 58 and 92 respectively. Exam Vital Signs Temp Pulse Resp BP Pulse Ox O2 Del Method 97.6 F 85 20 109/61 99 Room Air 08/19/24 08:00 08/19/24 10:11 08/19/24 10:11 08/19/24 08:00 08/19/24 10:11 08/19/24 08:00 Narrative Exam General: AAOx3, NAD, french speaking female, pleasant HEENT: Moist mucous membranes, conjunctiva clear, EOMI, PERRLA, Cardiovascular: S1, S2, radial pulses +2 bilat, RRR Pulmonary: CTAB bilat no cough, no wheezing GI: No tenderness to light or deep palpitation, no guarding, rigidity, rebound tenderness or distension Extremities: No presence of trace or pitting edema in lower extremities bilaterally, dorsalis pedis pulses +2 bilaterally Neuro: AAOx3, no focal motor or sensory deficits in the UE or LE bilat Psych: Good judgement, thought and behavior Objective Labs 08/20/24 04:01 08/20/24 04:01 Labs: Laboratory Results - last 24 hr 08/18/24 08/19/24 23:09 04:39 WBC 11.8 H 10.6 RBC 3.86 L 3.51 L Hgb 12.3 11.4 L Hct 35.6 L 32.7 L MCV 92 93 MCH 31.9 32.5 MCHC 34.6 34.9 RDW Std Deviation 41.8 41.9 Plt Count 200 166 D Neut % (Auto) 61 63 Lymph % (Auto) 29 29 [place] % (Auto) 7 5 Eos % (Auto) 3 2 Baso % (Auto) 0 1 Neut # (Auto) 7.2 6.7 Lymph # (Auto) 3.5 3.0 [place] # (Auto) 0.8 0.6 Eos # (Auto) 0.3 0.2 Baso # (Auto) 0.1 0.1 Immature Gran # (Auto) 0.04 H 0.04 H Absolute Nucleated RBC 0.00 0.00 Immature Gran % 0 0 Nucleated RBC % 0 0 Sodium 137 137 Potassium 3.8 3.4 Chloride 102 105 Carbon Dioxide 26.6 23.8 Anion Gap 8 8 BUN 13 11 Creatinine 0.6 0.5 L Estim Creat Clear Calc 108.0 117.1 eGFR > 60 > 60 BUN/Creatinine Ratio 22 H 22 H Glucose [address] Glu mg/dL 232 H Hemoglobin A1c 9.7 H Calculated Osmolality 278 279 Calcium 8.6 8.2 L Corrected Calcium 8.6 8.4 L Magnesium 1.7 1.6 Total Bilirubin 0.2 L 0.2 L AST 62 H 58 H ALT 103 H 92 H Alkaline Phosphatase 106 105 Total Protein 7.1 6.5 Albumin 4.1 3.7 Globulin 3.0 2.8 Albumin/Globulin Ratio 1.4 1.3 Triglycerides 171 H Cholesterol 136 LDL Cholesterol, Calc 63 HDL Cholesterol 39 L Cholesterol/HDL Ratio 3.5 L TSH 2.48 Quality Measures Quality Measures none Assessment & Plan Assessment Current Active Medications: Generic Name Dose Route Start Last Admin Trade Name Freq PRN Reason Stop Dose Admin Acetaminophen 650 mg 08/19/24 00:16 Acetaminophen 325 Mg Tablet PO 09/18/24 00:15 Q6H PRN Fever >101.5 Cefuroxime Axetil 500 mg 08/19/24 21:00 Cefuroxime Axetil 250 Mg Tablet PO 08/26/24 20:59 BID MARGARITO Dextrose 25 ml 08/19/24 00:16 Dextrose 50%-Water Inj 50 Ml Syringe IV 09/18/24 00:15 Q15MIN PRN BG 50-70 responsive npo pt Dextrose 50 ml 08/19/24 00:16 Dextrose 50%-Water Inj 50 Ml Syringe IV 09/18/24 00:15 Q15MIN PRN BG <50 OR BG <70 & pt unresponsive Glucagon 1 mg 08/19/24 00:16 Glucagon Inj 1 Mg Vial IM Q15MIN PRN BG <70, and no IV access Heparin Sodium (Porcine) 5,000 unit 08/19/24 09:00 08/19/24 10:00 Heparin Sod Inj 5000 Unit/Ml Vial SC 09/02/24 08:59 5,000 unit Q12H MARGARITO Administration Insulin Human Lispro 0 unit 08/19/24 07:30 08/19/24 07:44 Insulin Lispro (Admelog) 1 Unit/0.01 Ml Unit SC 09/18/24 07:29 1 unit AC MARGARITO Administration Protocol Sennosides 1 tab 08/19/24 00:16 Senna Tablet PO 09/18/24 00:15 QDAY PRN constipation Protocol Plan Assessment Ms. Whitten is a 43-year-old female with past medical history of diabetes mellitus who presented to [facility] emergency department from home on 08/18/2024 complaining of right rib pain that worsens with inspiration after suffering a ground-level fall, denies hitting head. Patient admitted to rule out tuberculosis due to finding on CT chest of Cavitary Lesion Left Upper Lobe #Cavitary Lesion Left Upper Lobe #TB rule out Patient reported fever, chills for about a week, patient reports weight loss after starting her diabetes medications but reports that her weight fluctuates, denies decrease in appetite, night sweats. Patient was born in [place], denies any recent travel, reports and brother recently travel to [place]. Rib x-ray in ED significant for 23 mm pulmonary mass indistinct margins left upper lobe, CT chest significant for 26 mm thick-walled cavitary lesion left upper lobe. Could be cavitary lesion related to cocci TB less likely however will need to rule out Plan: -Follow cocci serology -Follow-up AFB x 3 -Follow-up QuantiFERON -Tylenol as needed for fever and pain ?Infectious disease consulted, appreciate recs ?Sputum induction ?Continue with cefuroxime 500 mg twice daily # Type 2 diabetes mellitus Patient on Janumet at home for diabetes management A1c 9.3, TSH 2.48, total cholesterol 136, LDL 63 Plan: -Sliding scale insulin -Monitor fingersticks -Hypoglycemia protocol in place #Transaminitis, downtrending AST 58, ALT 92 on admission Plan: ? Trend with CMP ? Follow-up with hepatitis and HIV DVT prophylaxis: Heparin every 12 hours GI prophylaxis: Not Indicated Diet: Carb Consitent Lines: Peripheral IV Code status: Full Code #Health Maintenance Disposition: MedSurg with negative pressure room for TB rule out DVT prophylaxis: Heparin every 12 GI prophylaxis: None indicated at this time Diet: Carb consistent CODE STATUS: Full Patient seen and care discussed with my senior resident, Dr. Reyes , and my attending physician, Dr. Franklin Pedraza, PGY-1 Attending Provider Attestation/Addendum I reviewed labs, imaging, EKG, home medications and prior available records. Face to face evaluation was performed by me. I have personally examined the patient and discussed assessment and plan with the IM team. I reviewed the resident note and agree with the plan with exceptions as below. Cavitary lesion of lung Type 2 diabetes mellitus Possible left upper lobe pneumonia Follow-up cocci IgM Follow-up QuantiFERON and AFB x 3 Consulted ID Started sliding scale insulin Started IV ceftriaxone for possible associated bacterial pneumonia
[2024-08-19 12:23] LABS: Cocci Serology, IgM Negative (Negative)
--- NOTE | 2024-08-19 14:32 | PC.SS ---
Rounding: TB Rule out
[2024-08-19 20:48] LABS: Cult AFB Sendout- Sputum* See Sep Rpt
[2024-08-19] MEDS: cefuroxime axetiL 250 MG TABLET 500 MG PO (21:29)
[2024-08-20] VITALS (9 sets, daily range): BP systolic 92–125; BP diastolic 59–78; PULSE 66–89; RESP 16–100; TEMP 36.1–37.2; O2SAT 97–100
[2024-08-20] MEDS: SODIUM CHLORIDE RT 10% 15 ML NEBU 5 ML INH (02:49)
[2024-08-20 05:25] LABS: Basophils % (Auto) 1 % (0-2.5); Eosinophils # (Auto) 0.2 Thou/mm3 (0.0-0.5); Eosinophils % (Auto) 3 % (0-10); Hematocrit 33.9 % (36.0-46.0); Hemoglobin 11.7 g/dL (12.0-16.0); Immature Granulocytes % (Auto) 0 % (0-0); Immature Granulocytes Auto 0.01 Thou/mm3 (0.00-0.00); Lymphocytes # (Auto) 2.5 Thou/mm3 (1.0-4.8); Lymphocytes % (Auto) 39 % (10-50); Mean Corpuscular HGB Conc 34.5 g/dl (31.0-37.0); Mean Corpuscular Hemoglobin 31.5 pg (25.0-35.0); Mean Corpuscular Volume 91 fL (80-100); Monocytes # (Auto) 0.4 Thou/mm3 (0.0-0.8); Monocytes % (Auto) 6 % (0-12); Neutrophils # (Auto) 3.3 Thou/mm3 (1.8-7.7); Neutrophils % (Auto) 51 % (37-80); Nucleated Red Blood Cell % 0 /100 WBC (0); Platelet Count 203 Thou/mm3 (140-440); RDW Standard Deviation 41.1 fL (36.4-46.3); Red Blood Count 3.71 Miln/mm3 (4.00-5.20); White Blood Count 6.4 Thou/mm3 (3.6-11.0)
[2024-08-20 05:42] LABS: Partial Thromboplastin Time 28.2 Seconds (22.0-36.0); Prothrombin Time 10.9 Seconds (9.0-12.2)
[2024-08-20 06:29] LABS: Alanine Aminotransferase 88 U/L (10-49); Albumin, Serum 3.7 gm/dL (3.5-5.0); Albumin/Globulin Ratio 1.4 (1.2-2.2); Alkaline Phosphatase 102 U/L (46-116); Anion Gap 7 (7-16); Aspartate Amino Transferase 68 U/L (0-34); BUN/Creatinine Ratio 16 Ratio (12-20); Bilirubin,Total 0.3 mg/dL (0.3-1.2); Blood Urea Nitrogen 8 mg/dL (9-23); Calcium 8.9 mg/dL (8.3-10.6); Calcium (Corrected) 9.1 mg/dL (8.5-10.1); Carbon Dioxide 25.9 mMol/L (20.0-31.0); Chloride 104 mMol/L (98-107); Creatinine (Component) 0.5 mg/dL (0.6-1.3); Estimated Creatinine Clearance 117.1 mL/min (>60); Globulin 2.7 gm/dL (2.3-3.5); Glucose 217 mg/dL (74-106); Magnesium 1.6 mg/dL (1.6-2.6); Osmolality,Calculated 279 (275-295); Phosphorous 3.7 mg/dL (2.4-5.1); Potassium 3.5 mMol/L (3.4-5.1); Sodium 137 mMol/L (136-145); Total Protein 6.4 gm/dL (5.7-8.2); eGFR > 60 See Note
[2024-08-20 06:42] LABS: Hepatitis A Antibody IgM Non Reactive (Non React); Hepatitis B Core Antibody IgM Non Reactive (Non React); Hepatitis B Surface Antigen Non Reactive (Non React); Hepatitis C Antibody Non Reactive (Non React)
[2024-08-20] MEDS: INSULIN LISPRO (AdmeLOG) 1 UNIT/0.01 ML UNIT SC ×3 (07:33→17:26)
[2024-08-20] MEDS: cefuroxime axetiL 250 MG TABLET 500 MG PO ×2 (08:23→22:01)
[2024-08-20] MEDS: HEPARIN SOD INJ 5000 UNIT/ML VIAL SC ×2 (08:25→22:01)
--- NOTE | 2024-08-20 09:38 | PD.RESPRO ---
Documentation for date of: 08/20/24 Exam Vital Signs Temp Pulse Resp BP Pulse Ox O2 Del Method 98.2 F 71 16 92/61 99 Room Air 08/20/24 08:00 08/20/24 08:00 08/20/24 08:00 08/20/24 08:00 08/20/24 08:00 08/20/24 08:00 Objective Labs 08/20/24 04:01 08/20/24 04:01 Labs: Laboratory Results - last 24 hr 08/18/24 08/20/24 23:09 04:01 WBC 6.4 RBC 3.71 L Hgb 11.7 L Hct 33.9 L MCV 91 MCH 31.5 MCHC 34.5 RDW Std Deviation 41.1 Plt Count 203 D Neut % (Auto) 51 Lymph % (Auto) 39 [place] % (Auto) 6 Eos % (Auto) 3 Baso % (Auto) 1 Neut # (Auto) 3.3 Lymph # (Auto) 2.5 [place] # (Auto) 0.4 Eos # (Auto) 0.2 Baso # (Auto) 0.0 Immature Gran # (Auto) 0.01 H Absolute Nucleated RBC 0.00 Immature Gran % 0 Nucleated RBC % 0 PT 10.9 INR 1.0 APTT 28.2 Sodium 137 Potassium 3.5 Chloride 104 Carbon Dioxide 25.9 Anion Gap 7 BUN 8 L Creatinine 0.5 L Estim Creat Clear Calc 117.1 eGFR > 60 BUN/Creatinine Ratio 16 Glucose 217 H Calculated Osmolality 279 Calcium 8.9 Corrected Calcium 9.1 Phosphorus 3.7 Magnesium 1.6 Total Bilirubin 0.3 AST 68 H ALT 88 H Alkaline Phosphatase 102 Total Protein 6.4 Albumin 3.7 Globulin 2.7 Albumin/Globulin Ratio 1.4 Coccidioides IgM Ab Negative Hepatitis A IgM Ab Non Reactive Hep Bs Antigen Non Reactive Hep B Core IgM Ab Non Reactive Hepatitis C Antibody Non Reactive Quality Measures Quality Measures VTE prophylaxis Assessment & Plan Assessment Current Active Medications: Generic Name Dose Route Start Last Admin Trade Name Freq PRN Reason Stop Dose Admin Acetaminophen 650 mg 08/19/24 00:16 Acetaminophen 325 Mg Tablet PO 09/18/24 00:15 Q6H PRN Fever >101.5 Cefuroxime Axetil 500 mg 08/19/24 21:00 08/20/24 08:23 Cefuroxime Axetil 250 Mg Tablet PO 08/26/24 20:59 500 mg BID MARGARITO Administration Dextrose 25 ml 08/19/24 00:16 Dextrose 50%-Water Inj 50 Ml Syringe IV 09/18/24 00:15 Q15MIN PRN BG 50-70 responsive npo pt Dextrose 50 ml 08/19/24 00:16 Dextrose 50%-Water Inj 50 Ml Syringe IV 09/18/24 00:15 Q15MIN PRN BG <50 OR BG <70 & pt unresponsive Glucagon 1 mg 08/19/24 00:16 Glucagon Inj 1 Mg Vial IM Q15MIN PRN BG <70, and no IV access Heparin Sodium (Porcine) 5,000 unit 08/19/24 09:00 08/20/24 08:25 Heparin Sod Inj 5000 Unit/Ml Vial SC 09/02/24 08:59 5,000 unit Q12H MARGARITO Administration Insulin Human Lispro 0 unit 08/19/24 07:30 08/20/24 07:33 Insulin Lispro (Admelog) 1 Unit/0.01 Ml Unit SC 09/18/24 07:29 2 unit AC MARGARITO Administration Protocol Sennosides 1 tab 08/19/24 00:16 Senna Tablet PO 09/18/24 00:15 QDAY PRN constipation Protocol Plan Assessment Ms. Whitten is a 43-year-old female with past medical history of diabetes mellitus who presented to [facility] emergency department from home on 08/18/2024 complaining of right rib pain that worsens with inspiration after suffering a ground-level fall, denies hitting head. Patient admitted to rule out tuberculosis due to finding on CT chest of Cavitary Lesion Left Upper Lobe #Cavitary Lesion Left Upper Lobe #TB rule out Patient reported fever, chills for about a week, patient reports weight loss after starting her diabetes medications but reports that her weight fluctuates, denies decrease in appetite, night sweats. Patient was born in [place], denies any recent travel, reports and brother recently travel to [place]. Rib x-ray in ED significant for 23 mm pulmonary mass indistinct margins left upper lobe, CT chest significant for 26 mm thick-walled cavitary lesion left upper lobe. Could be cavitary lesion related to cocci TB less likely however will need to rule out Plan: -Follow cocci serology -Follow-up AFB x 3 -Follow-up QuantiFERON -Tylenol as needed for fever and pain ?Infectious disease consulted, appreciate recs ?Sputum induction ?Continue with cefuroxime 500 mg twice daily # Type 2 diabetes mellitus Patient on Janumet at home for diabetes management A1c 9.3, TSH 2.48, total cholesterol 136, LDL 63 Plan: -Sliding scale insulin -Monitor fingersticks -Hypoglycemia protocol in place #Transaminitis, downtrending AST 58, ALT 92 on admission Plan: ? Trend with CMP ? Follow-up with hepatitis and HIV DVT prophylaxis: Heparin every 12 hours GI prophylaxis: Not Indicated Diet: Carb Consitent Lines: Peripheral IV Code status: Full Code #Health Maintenance Disposition: MedSurg with negative pressure room for TB rule out DVT prophylaxis: Heparin every 12 GI prophylaxis: None indicated at this time Diet: Carb consistent CODE STATUS: Full Patient seen and care discussed with my senior resident, Dr. Reyes, and my attending physician, Dr. Franklin Pedraza, PGY-1 Attending Provider Attestation/Addendum I reviewed labs, imaging, EKG, home medications and prior available records. Face to face evaluation was performed by me. I have personally examined the patient and discussed assessment and plan with the IM team. I reviewed the resident note and agree with the plan with exceptions as below. Cavitary lesion of lung Type 2 diabetes mellitus Possible left upper lobe pneumonia Follow-up cocci IgM Follow-up QuantiFERON and AFB x 3 Consulted ID Started sliding scale insulin Started IV ceftriaxone for possible associated bacterial pneumonia
--- NOTE | 2024-08-20 10:19 | PD.RESPRO ---
Documentation for date of: 08/20/24 Subjective Subjective Interval history: 08/19/2024: Patient examined at bedside today. No acute overnight events. Patient reports that she is feeling okay. She reports she has no smoking history or exposure to tuberculosis. She is unaware of having this possible lung mass. She does confirm working in the [employer]. She did say that she had some fevers recently which was on Monday but they were at night. Denies any weight loss. No complaints at this time. White count 10.6, hemoglobin 11.4, sodium of 137, potassium 3.4, bicarb 24, BUN/creatinine 11 and 0.5 respectively, magnesium 1.6, AST ALT 58 and 92 respectively. 08/20/2024: Pt examined at bedside today. No acute overnight events. Pt reports is she doing okay and is wondering when she is going to home. She denies any fever or night sweats overnight. She was able to give a 3rd sample of sputum. No other complaints at this time. BUN/Cr 8 and 0.5, WBC 6.4, potassium 3.5, Mg 1.6, Hepatitis negative, Cocci IgM negative, Hgb 11.7. Exam Vital Signs Temp Pulse Resp BP Pulse Ox O2 Del Method 98.2 F 71 16 92/61 99 Room Air 08/20/24 08:00 08/20/24 08:00 08/20/24 08:00 08/20/24 08:00 08/20/24 08:00 08/20/24 08:00 Narrative Exam General: AAOx3, NAD, uzbek speaking female, pleasant HEENT: Moist mucous membranes, conjunctiva clear, EOMI, PERRLA, Cardiovascular: S1, S2, radial pulses +2 bilat, RRR Pulmonary: CTAB bilat no cough, no wheezing GI: No tenderness to light or deep palpitation, no guarding, rigidity, rebound tenderness or distension Extremities: No presence of trace or pitting edema in lower extremities bilaterally, dorsalis pedis pulses +2 bilaterally Neuro: AAOx3, no focal motor or sensory deficits in the UE or LE bilat Psych: Good judgement, thought and behavior Objective Labs 08/21/24 04:35 08/21/24 04:35 Labs: Laboratory Results - last 24 hr 08/18/24 08/20/24 23:09 04:01 WBC 6.4 RBC 3.71 L Hgb 11.7 L Hct 33.9 L MCV 91 MCH 31.5 MCHC 34.5 RDW Std Deviation 41.1 Plt Count 203 D Neut % (Auto) 51 Lymph % (Auto) 39 [place] % (Auto) 6 Eos % (Auto) 3 Baso % (Auto) 1 Neut # (Auto) 3.3 Lymph # (Auto) 2.5 [place] # (Auto) 0.4 Eos # (Auto) 0.2 Baso # (Auto) 0.0 Immature Gran # (Auto) 0.01 H Absolute Nucleated RBC 0.00 Immature Gran % 0 Nucleated RBC % 0 PT 10.9 INR 1.0 APTT 28.2 Sodium 137 Potassium 3.5 Chloride 104 Carbon Dioxide 25.9 Anion Gap 7 BUN 8 L Creatinine 0.5 L Estim Creat Clear Calc 117.1 eGFR > 60 BUN/Creatinine Ratio 16 Glucose 217 H Calculated Osmolality 279 Calcium 8.9 Corrected Calcium 9.1 Phosphorus 3.7 Magnesium 1.6 Total Bilirubin 0.3 AST 68 H ALT 88 H Alkaline Phosphatase 102 Total Protein 6.4 Albumin 3.7 Globulin 2.7 Albumin/Globulin Ratio 1.4 Coccidioides IgM Ab Negative Hepatitis A IgM Ab Non Reactive Hep Bs Antigen Non Reactive Hep B Core IgM Ab Non Reactive Hepatitis C Antibody Non Reactive Quality Measures Quality Measures VTE prophylaxis Assessment & Plan Assessment Current Active Medications: Generic Name Dose Route Start Last Admin Trade Name Freq PRN Reason Stop Dose Admin Acetaminophen 650 mg 08/19/24 00:16 Acetaminophen 325 Mg Tablet PO 09/18/24 00:15 Q6H PRN Fever >101.5 Cefuroxime Axetil 500 mg 08/19/24 21:00 08/20/24 08:23 Cefuroxime Axetil 250 Mg Tablet PO 08/26/24 20:59 500 mg BID MARGARITO Administration Dextrose 25 ml 08/19/24 00:16 Dextrose 50%-Water Inj 50 Ml Syringe IV 09/18/24 00:15 Q15MIN PRN BG 50-70 responsive npo pt Dextrose 50 ml 08/19/24 00:16 Dextrose 50%-Water Inj 50 Ml Syringe IV 09/18/24 00:15 Q15MIN PRN BG <50 OR BG <70 & pt unresponsive Glucagon 1 mg 08/19/24 00:16 Glucagon Inj 1 Mg Vial IM Q15MIN PRN BG <70, and no IV access Heparin Sodium (Porcine) 5,000 unit 08/19/24 09:00 08/20/24 08:25 Heparin Sod Inj 5000 Unit/Ml Vial SC 09/02/24 08:59 5,000 unit Q12H MARGARITO Administration Insulin Human Lispro 0 unit 08/19/24 07:30 08/20/24 07:33 Insulin Lispro (Admelog) 1 Unit/0.01 Ml Unit SC 09/18/24 07:29 2 unit AC MARGARITO Administration Protocol Sennosides 1 tab 08/19/24 00:16 Senna Tablet PO 09/18/24 00:15 QDAY PRN constipation Protocol Plan Assessment Ms. Whitten is a 43-year-old female with past medical history of diabetes mellitus who presented to [facility] emergency department from home on 08/18/2024 complaining of right rib pain that worsens with inspiration after suffering a ground-level fall, denies hitting head. Patient admitted to rule out tuberculosis due to finding on CT chest of Cavitary Lesion Left Upper Lobe #Cavitary Lesion Left Upper Lobe #TB rule out Patient reported fever, chills for about a week, patient reports weight loss after starting her diabetes medications but reports that her weight fluctuates, denies decrease in appetite, night sweats. Patient was born in [place], denies any recent travel, reports and brother recently travel to [place]. Rib x-ray in ED significant for 23 mm pulmonary mass indistinct margins left upper lobe, CT chest significant for 26 mm thick-walled cavitary lesion left upper lobe. Could be cavitary lesion related to cocci TB less likely however will need to rule out Cocci IgM negative, so cocci could be less likely, however need to follow up reflex IgG We having 3 samples now, we need to follow up each result to rule out TB Hepatitis negative Plan: -Follow cocci serology -Follow-up AFB x 3 -Follow-up QuantiFERON -Tylenol as needed for fever and pain ?Infectious disease consulted, appreciate recs ?Continue with cefuroxime 500 mg twice daily # Type 2 diabetes mellitus Patient on Janumet at home for diabetes management A1c 9.3, TSH 2.48, total cholesterol 136, LDL 63 Plan: -Sliding scale insulin -Monitor fingersticks -Hypoglycemia protocol in place #Transaminitis, downtrending AST 58, ALT 92 on admission Hepatitis negative Plan: ? Trend with CMP ? Follow-up HIV #Health Maintenance Disposition: MedSurg with negative pressure room for TB rule out DVT prophylaxis: Heparin every 12 GI prophylaxis: None indicated at this time Diet: Carb consistent CODE STATUS: Full Patient seen and care discussed with my senior resident, Dr. Reyes, and my attending physician, Dr. Franklin Pedraza, PGY-1 Attending Provider Attestation/Addendum I reviewed labs, imaging, EKG, home medications and prior available records. Face to face evaluation was performed by me. I have personally examined the patient and discussed assessment and plan with the IM team. I reviewed the resident note and agree with the plan with exceptions as below. Cavitary lesion of lung Type 2 diabetes mellitus Possible left upper lobe pneumonia Follow-up cocci IgM: Negative Follow-up QuantiFERON and AFB x 3: Pending Consulted ID: Switched to cefuroxime for possible associated pneumonia Started sliding scale insulin. Monitor fingersticks
--- NOTE | 2024-08-20 11:06 | PC.RT ---
AFB #3 sent to lab
[2024-08-20 11:32] LABS: Cult AFB Sendout- Sputum* See Sep Rpt
[2024-08-20 13:30] LABS: Cocci Serology, IgG Negative (Negative)
[2024-08-20 15:46] LABS: HIV (1&2) Antibody Rapid Non-Reactive
[2024-08-21] VITALS (9 sets, daily range): BP systolic 99–110; BP diastolic 64–75; PULSE 72–92; RESP 17–100; TEMP 36.3–37.1; O2SAT 99–100; BMI 23.8
[2024-08-21 06:16] LABS: Basophils % (Auto) 0 % (0-2.5); Eosinophils # (Auto) 0.2 Thou/mm3 (0.0-0.5); Eosinophils % (Auto) 2 % (0-10); Hematocrit 34.7 % (36.0-46.0); Immature Granulocytes % (Auto) 0 % (0-0); Immature Granulocytes Auto 0.02 Thou/mm3 (0.00-0.00); Lymphocytes # (Auto) 2.3 Thou/mm3 (1.0-4.8); Lymphocytes % (Auto) 29 % (10-50); Mean Corpuscular HGB Conc 34.6 g/dl (31.0-37.0); Mean Corpuscular Hemoglobin 31.8 pg (25.0-35.0); Mean Corpuscular Volume 92 fL (80-100); Monocytes # (Auto) 0.6 Thou/mm3 (0.0-0.8); Monocytes % (Auto) 8 % (0-12); Neutrophils # (Auto) 4.9 Thou/mm3 (1.8-7.7); Neutrophils % (Auto) 61 % (37-80); Nucleated Red Blood Cell % 0 /100 WBC (0); Platelet Count 215 Thou/mm3 (140-440); RDW Standard Deviation 41.7 fL (36.4-46.3); Red Blood Count 3.77 Miln/mm3 (4.00-5.20); White Blood Count 8.1 Thou/mm3 (3.6-11.0)
[2024-08-21 06:41] LABS: Alanine Aminotransferase 95 U/L (10-49); Albumin, Serum 3.8 gm/dL (3.5-5.0); Albumin/Globulin Ratio 1.4 (1.2-2.2); Alkaline Phosphatase 112 U/L (46-116); Anion Gap 3 (7-16); Aspartate Amino Transferase 66 U/L (0-34); BUN/Creatinine Ratio 20 Ratio (12-20); Bilirubin,Total 0.2 mg/dL (0.3-1.2); Blood Urea Nitrogen 12 mg/dL (9-23); Calcium 9.2 mg/dL (8.3-10.6); Calcium (Corrected) 9.4 mg/dL (8.5-10.1); Carbon Dioxide 27.2 mMol/L (20.0-31.0); Chloride 104 mMol/L (98-107); Creatinine (Component) 0.6 mg/dL (0.6-1.3); Estimated Creatinine Clearance 97.6 mL/min (>60); Globulin 2.8 gm/dL (2.3-3.5); Glucose 213 mg/dL (74-106); Magnesium 1.5 mg/dL (1.6-2.6); Osmolality,Calculated 273 (275-295); Phosphorous 4.6 mg/dL (2.4-5.1); Potassium 3.8 mMol/L (3.4-5.1); Sodium 134 mMol/L (136-145); Total Protein 6.6 gm/dL (5.7-8.2); eGFR > 60 See Note
[2024-08-21] MEDS: INSULIN LISPRO (AdmeLOG) 1 UNIT/0.01 ML UNIT SC ×3 (07:38→16:53)
[2024-08-21] MEDS: HEPARIN SOD INJ 5000 UNIT/ML VIAL SC ×2 (10:08→20:00)
[2024-08-21] MEDS: ACETAMINOPHEN 325 MG TABLET 650 MG PO (10:08)
[2024-08-21] MEDS: cefuroxime axetiL 250 MG TABLET 500 MG PO ×2 (10:08→20:00)
[2024-08-21] MEDS: Magnesium Sulfate 1 gm Ivpb 1 GM/100 ML BAG IV (10:09)
--- NOTE | 2024-08-21 11:09 | PD.RESPRO ---
Documentation for date of: 08/21/24 Subjective Subjective Interval history: 08/19/2024: Patient examined at bedside today. No acute overnight events. Patient reports that she is feeling okay. She reports she has no smoking history or exposure to tuberculosis. She is unaware of having this possible lung mass. She does confirm working in the [employer]. She did say that she had some fevers recently which was on Monday but they were at night. Denies any weight loss. No complaints at this time. White count 10.6, hemoglobin 11.4, sodium of 137, potassium 3.4, bicarb 24, BUN/creatinine 11 and 0.5 respectively, magnesium 1.6, AST ALT 58 and 92 respectively. 08/20/2024: Pt examined at bedside today. No acute overnight events. Pt reports is she doing okay and is wondering when she is going to home. She denies any fever or night sweats overnight. She was able to give a 3rd sample of sputum. No other complaints at this time. BUN/Cr 8 and 0.5, WBC 6.4, potassium 3.5, Mg 1.6, Hepatitis negative, Cocci IgM negative, Hgb 11.7. 08/21/2024: Pt examined at bedside today. She reports having some fevers overnight. She is asking to go home at this time. She has no other complaints including SOB or CP. BUN/Cr 12 and 0.6 respectively, WBC 9.9, Hgb 13, Potassium 4.2, sodium 141 and Mg 1.9. No other complaints at this time. Exam Vital Signs Temp Pulse Resp BP Pulse Ox O2 Del Method 98.8 F 72 18 99/67 100 Room Air 08/21/24 10:08 08/21/24 07:37 08/21/24 07:37 08/21/24 07:37 08/21/24 07:37 08/21/24 07:37 Narrative Exam General: AAOx3, NAD, telugu speaking female, pleasant HEENT: Moist mucous membranes, conjunctiva clear, EOMI, PERRLA, Cardiovascular: S1, S2, radial pulses +2 bilat, RRR Pulmonary: CTAB bilat no cough, no wheezing GI: No tenderness to light or deep palpitation, no guarding, rigidity, rebound tenderness or distension Extremities: No presence of trace or pitting edema in lower extremities bilaterally, dorsalis pedis pulses +2 bilaterally Neuro: AAOx3, no focal motor or sensory deficits in the UE or LE bilat Psych: Good judgement, thought and behavior Objective Labs 08/21/24 04:35 08/21/24 04:35 Labs: Laboratory Results - last 24 hr 08/18/24 08/19/24 08/20/24 23:09 10:30 04:01 WBC RBC Hgb Hct MCV MCH MCHC RDW Std Deviation Plt Count Neut % (Auto) Lymph % (Auto) [place] % (Auto) Eos % (Auto) Baso % (Auto) Neut # (Auto) Lymph # (Auto) [place] # (Auto) Eos # (Auto) Baso # (Auto) Immature Gran # (Auto) Absolute Nucleated RBC Immature Gran % Nucleated RBC % Sodium Potassium Chloride Carbon Dioxide Anion Gap BUN Creatinine Estim Creat Clear Calc eGFR BUN/Creatinine Ratio Glucose Calculated Osmolality Calcium Corrected Calcium Phosphorus Magnesium Total Bilirubin AST ALT Alkaline Phosphatase Total Protein Albumin Globulin Albumin/Globulin Ratio Coccidioides IgG Ab Negative HIV 1&2 Antibody Rapid Non-Reactive Mycobacterial Culture See Sep Rpt 08/21/24 04:35 WBC 8.1 RBC 3.77 L Hgb 12.0 Hct 34.7 L MCV 92 MCH 31.8 MCHC 34.6 RDW Std Deviation 41.7 Plt Count 215 Neut % (Auto) 61 Lymph % (Auto) 29 [place] % (Auto) 8 Eos % (Auto) 2 Baso % (Auto) 0 Neut # (Auto) 4.9 Lymph # (Auto) 2.3 [place] # (Auto) 0.6 Eos # (Auto) 0.2 Baso # (Auto) 0.0 Immature Gran # (Auto) 0.02 H Absolute Nucleated RBC 0.00 Immature Gran % 0 Nucleated RBC % 0 Sodium 134 L Potassium 3.8 Chloride 104 Carbon Dioxide 27.2 Anion Gap 3 L BUN 12 Creatinine 0.6 Estim Creat Clear Calc 97.6 eGFR > 60 BUN/Creatinine Ratio 20 Glucose 213 H Calculated Osmolality 273 L Calcium 9.2 Corrected Calcium 9.4 Phosphorus 4.6 Magnesium 1.5 L Total Bilirubin 0.2 L AST 66 H ALT 95 H Alkaline Phosphatase 112 Total Protein 6.6 Albumin 3.8 Globulin 2.8 Albumin/Globulin Ratio 1.4 Coccidioides IgG Ab HIV 1&2 Antibody Rapid Mycobacterial Culture Quality Measures Quality Measures VTE prophylaxis Assessment & Plan Assessment Current Active Medications: Generic Name Dose Route Start Last Admin Trade Name Freq PRN Reason Stop Dose Admin Acetaminophen 650 mg 08/19/24 00:16 08/21/24 10:08 Acetaminophen 325 Mg Tablet PO 09/18/24 00:15 650 mg Q6H PRN Administration Fever >101.5 Cefuroxime Axetil 500 mg 08/19/24 21:00 08/21/24 10:08 Cefuroxime Axetil 250 Mg Tablet PO 08/26/24 20:59 500 mg BID MARGARITO Administration Dextrose 25 ml 08/19/24 00:16 Dextrose 50%-Water Inj 50 Ml Syringe IV 09/18/24 00:15 Q15MIN PRN BG 50-70 responsive npo pt Dextrose 50 ml 08/19/24 00:16 Dextrose 50%-Water Inj 50 Ml Syringe IV 09/18/24 00:15 Q15MIN PRN BG <50 OR BG <70 & pt unresponsive Glucagon 1 mg 08/19/24 00:16 Glucagon Inj 1 Mg Vial IM Q15MIN PRN BG <70, and no IV access Heparin Sodium (Porcine) 5,000 unit 08/19/24 09:00 08/21/24 10:08 Heparin Sod Inj 5000 Unit/Ml Vial SC 09/02/24 08:59 5,000 unit Q12H MARGARITO Administration Insulin Human Lispro 0 unit 08/19/24 07:30 08/21/24 07:38 Insulin Lispro (Admelog) 1 Unit/0.01 Ml Unit SC 09/18/24 07:29 1 unit AC MARGARITO Administration Protocol Sennosides 1 tab 08/19/24 00:16 Senna Tablet PO 09/18/24 00:15 QDAY PRN constipation Protocol Plan Assessment Ms. Whitten is a 43-year-old female with past medical history of diabetes mellitus who presented to [facility] ([facility] emergency department from home on 08/18/2024 complaining of right rib pain that worsens with inspiration after suffering a ground-level fall, denies hitting head. Patient admitted to rule out tuberculosis due to finding on CT chest of Cavitary Lesion Left Upper Lobe #Cavitary Lesion Left Upper Lobe #TB rule out Patient reported fever, chills for about a week, patient reports weight loss after starting her diabetes medications but reports that her weight fluctuates, denies decrease in appetite, night sweats. Patient was born in [place], denies any recent travel, reports and brother recently travel to [place]. Rib x-ray in ED significant for 23 mm pulmonary mass indistinct margins left upper lobe, CT chest significant for 26 mm thick-walled cavitary lesion left upper lobe. Could be cavitary lesion related to cocci TB less likely however will need to rule out Hepatitis negative Cocci IgM and IgG negative One AFB is negative at this time Plan: -Follow cocci serology -Follow-up AFB x 2 -Follow-up QuantiFERON -Tylenol as needed for fever and pain ?Infectious disease consulted, appreciate recs ?Continue with cefuroxime 500 mg twice daily # Type 2 diabetes mellitus Patient on Janumet at home for diabetes management A1c 9.3, TSH 2.48, total cholesterol 136, LDL 63 Plan: -5 units Lantus now, 5 units lantus tonight, 10 units Lantus starting tomorrow night -Sliding scale insulin -Monitor fingersticks -Hypoglycemia protocol in place #Transaminitis, downtrending AST 66, ALT 95 on admission Hepatitis negative HIV negative Plan: ? Trend with CMP #Health Maintenance Disposition: MedSurg with negative pressure room for TB rule out DVT prophylaxis: Heparin every 12 GI prophylaxis: None indicated at this time Diet: Carb consistent CODE STATUS: Full Patient seen and care discussed with my senior resident, Dr. Reyes, and my attending physician, Dr. Franklin Pedraza, PGY-1 Attending Provider Attestation/Addendum I reviewed labs, imaging, EKG, home medications and prior available records. Face to face evaluation was performed by me. I have personally examined the patient and discussed assessment and plan with the IM team. I reviewed the resident note and agree with the plan with exceptions as below. Cavitary lesion of lung Type 2 diabetes mellitus Possible left upper lobe pneumonia Follow-up cocci IgM: Negative Follow-up QuantiFERON and AFB x 3: First sample is negative. Consulted ID: Switched to cefuroxime for possible associated pneumonia Started sliding scale insulin. Monitor fingersticks
[2024-08-21] MEDS: INSULIN GLARGINE (Lantus) 5 UNIT/0.05 ML (PER 5 UNITS) SC ×2 (12:43→20:00)
--- NOTE | 2024-08-21 14:41 | PD.IDPROG ---
Subjective Subjective Interval history: will get afb's .cocci neg. doing ok on cefuroxime empirically. low value to bal, but an option if afb's neg. Exam Vital Signs Temp Pulse Resp BP Pulse Ox O2 Del Method 97.5 F 78 17 110/75 99 Room Air 08/21/24 11:39 08/21/24 11:39 08/21/24 11:39 08/21/24 11:39 08/21/24 11:39 08/21/24 11:39 Narrative Exam limited eval Objective - Internal Medicine Labs 08/21/24 04:35 08/21/24 04:35 Labs: Laboratory Results - last 24 hr 08/19/24 08/20/24 08/21/24 10:30 04:01 04:35 WBC 8.1 RBC 3.77 L Hgb 12.0 Hct 34.7 L MCV 92 MCH 31.8 MCHC 34.6 RDW Std Deviation 41.7 Plt Count 215 Neut % (Auto) 61 Lymph % (Auto) 29 [place] % (Auto) 8 Eos % (Auto) 2 Baso % (Auto) 0 Neut # (Auto) 4.9 Lymph # (Auto) 2.3 [place] # (Auto) 0.6 Eos # (Auto) 0.2 Baso # (Auto) 0.0 Immature Gran # (Auto) 0.02 H Absolute Nucleated RBC 0.00 Immature Gran % 0 Nucleated RBC % 0 Sodium 134 L Potassium 3.8 Chloride 104 Carbon Dioxide 27.2 Anion Gap 3 L BUN 12 Creatinine 0.6 Estim Creat Clear Calc 97.6 eGFR > 60 BUN/Creatinine Ratio 20 Glucose 213 H Calculated Osmolality 273 L Calcium 9.2 Corrected Calcium 9.4 Phosphorus 4.6 Magnesium 1.5 L Total Bilirubin 0.2 L AST 66 H ALT 95 H Alkaline Phosphatase 112 Total Protein 6.6 Albumin 3.8 Globulin 2.8 Albumin/Globulin Ratio 1.4 HIV 1&2 Antibody Rapid Non-Reactive Mycobacterial Culture See Sep Rpt Assessment & Plan A&P Narrative cavitary pulm process w/o rash of 1 weeks duration. cocci vs tb vs other. including regular pneumonia dm II, a1c 9.7 if cocci neg, then we have to pursue tb if tb neg, we can sunil other concerns. will likely see again on Monday.. Time Spent With Patient Time: Total time spent is greater than 50% in coordination of care (as documented) at patient's floor/unit and/or counseling patient:
[2024-08-22] VITALS: BP 113/66; PULSE 69; RESP 18; TEMP 36.5; O2SAT 97
[2024-08-22 04:00] VITALS: BP 95/57; PULSE 71; RESP 16; TEMP 36.3; O2SAT 98
[2024-08-22 06:13] LABS: Basophils % (Auto) 1 % (0-2.5); Eosinophils # (Auto) 0.2 Thou/mm3 (0.0-0.5); Eosinophils % (Auto) 3 % (0-10); Hematocrit 36.1 % (36.0-46.0); Hemoglobin 12.6 g/dL (12.0-16.0); Immature Granulocytes % (Auto) 0 % (0-0); Immature Granulocytes Auto 0.02 Thou/mm3 (0.00-0.00); Lymphocytes # (Auto) 2.5 Thou/mm3 (1.0-4.8); Lymphocytes % (Auto) 35 % (10-50); Mean Corpuscular HGB Conc 34.9 g/dl (31.0-37.0); Mean Corpuscular Volume 92 fL (80-100); Monocytes # (Auto) 0.5 Thou/mm3 (0.0-0.8); Monocytes % (Auto) 7 % (0-12); Neutrophils % (Auto) 55 % (37-80); Nucleated Red Blood Cell % 0 /100 WBC (0); Platelet Count 233 Thou/mm3 (140-440); RDW Standard Deviation 41.1 fL (36.4-46.3); Red Blood Count 3.94 Miln/mm3 (4.00-5.20); White Blood Count 7.2 Thou/mm3 (3.6-11.0)
[2024-08-22 06:36] LABS: Anion Gap 8 (7-16); BUN/Creatinine Ratio 17 Ratio (12-20); Blood Urea Nitrogen 10 mg/dL (9-23); Calcium 9.4 mg/dL (8.3-10.6); Calcium (Corrected) 9.4 mg/dL (8.5-10.1); Carbon Dioxide 27.9 mMol/L (20.0-31.0); Chloride 103 mMol/L (98-107); Creatinine (Component) 0.6 mg/dL (0.6-1.3); Estimated Creatinine Clearance 101.5 mL/min (>60); Glucose 175 mg/dL (74-106); Magnesium 1.6 mg/dL (1.6-2.6); Osmolality,Calculated 280 (275-295); Phosphorous 4.2 mg/dL (2.4-5.1); Potassium 3.6 mMol/L (3.4-5.1); Sodium 139 mMol/L (136-145); eGFR > 60 See Note
[2024-08-22 07:31] VITALS: BP 113/72; PULSE 79; RESP 16; TEMP 36.3; O2SAT 98
[2024-08-22] MEDS: INSULIN LISPRO (AdmeLOG) 1 UNIT/0.01 ML UNIT SC (08:19)
[2024-08-22] MEDS: HEPARIN SOD INJ 5000 UNIT/ML VIAL SC (09:16)
[2024-08-22] MEDS: cefuroxime axetiL 250 MG TABLET 500 MG PO (09:16)
--- NOTE | 2024-08-22 11:04 | PC.NURSE ---
Got AN UPDATE FROM [employer] CONTROL NURSE Saul MORATAYA. AFB CAME NEG. NOT MORE [place]ORNE PRECAUTION NEEDED
[2024-08-22 12:00] VITALS: BP 118/70; PULSE 80; RESP 17; TEMP 36.3; O2SAT 98
--- NOTE | 2024-08-22 15:02 | PD.ADDDSCHGE ---
Addendum Discharge Addendum Date of report being addended: 08/22/24 Narrative: I reviewed labs, imaging, EKG, home medications and prior available records. Face to face evaluation was performed by me. I have personally examined the patient and discussed assessment and plan with the IM team. I reviewed the resident note and agree with the plan with exceptions as below. Cavitary lesion of lung, etiology is unclear Type 2 diabetes mellitus Possible left upper lobe pneumonia: Less likely Dyspepsia Follow-up cocci IgM: Negative Follow-up QuantiFERON: Negative and AFB x 3: Negative Consulted ID: Okay to discharge. Follow-up as outpatient for bronchial lavage. If negative, may pursue further workup such as autoimmune workup to rule out vasculitis/autoimmune disease related pulmonary lesions. Repeat CT scan in 6 months. The workup was discussed with the patient who expressed understanding Started sliding scale insulin. Monitor fingersticks Started empiric treatment with Protonix 40 mg daily as the patient complained of epigastric pain that happens after meals. Instructed the patient to avoid NSAIDs which she reported taking. Outpatient follow-up. Time spent is 40 minutes. More than 50% of the time was spent on patient education and coordination of care.
--- NOTE | 2024-08-22 15:07 | ESDS_ITS ---
<Statement entered by Jc Patton MD - 08/22/24 15:41> Patient was examined with the team including attending physician. Note reviewed, I agree with the discharge plan as documented. - Jc Patton M.D. PGY2 Planned Discharge Date 08/22/24 DS: Providers Provider Date of admission: 08/19/24 00:16 Primary care physician: Physician No Primary/Family Admitting Provider: Michael Gaona MD Attending Provider on Admission: Nigel Reid MD Consults: 08/19/24 08:14 Consult to Infectious Diseases Routine Comment: caivtary lesion in lung Consulting Provider: Dieter Barnes Attending Provider on DC: Nigel Reid MD Discharging Provider: Nigel Reid MD DS: Diagnosis Problem List Completed Was Problem List Reviewed/Reconciled?: Yes Hospital Course Hospital Course Hospital course: Lilia is a 43-year-old female with past medical history of non insulin dependent diabetes type II who was admitted to [facility] on 08/18/2024 for an evaluation of R rib pain as she tripped and fell, with no head trauma. She came to the ED w/ a BP 98/65, P86, RR 16, temp 98.5, O2 sat 99 on room air. She was worked up and was found to have WBC 11.8, RBC 3.86, hematocrit 35.6, glucose 197, AST 62, ALT 103, cocci IgM pending. With further workup, CXR revealed 23 mm pulmonary mass indistinct margins left upper lobe, CT chest significant for 26 m m thick-walled cavitary lesion left upper lobe. She was given Toradol 30 x 1 in the ED and was admitted to the floors. Pt had reported she had travel history from [place] and has lived there but denied any other hx of other travel and TB exposure. She did endorse having worked in the [employer] in the past. She did deny any weight loss, fevers or night sweats. Nevertheless, TB rule out was initiated with AFB x3 and QFT gold. Cocci IgM and IgG had come back negative. AFB x3 were negative for patient in addition to QFT gold test. Pt will likely need to get pulmonary referral outpatient for BAL to further workup cavitary lesion. She was also complaining of some dyspepsia symptoms upon d/c and was given PPI and recommended to take it upon d/c. #Cavitary Lesion Left Upper Lobe #TB rule out # Type 2 diabetes mellitus #Transaminitis, resolved #Dyspepsia Discharge Instructions: - Follow up with PCP within 1 week - If you dont have a primary doctor, please follow up at the [facility] on [address] , Call: [phone] for appointment. - You have a cavitary lesion in the lungs. You will need a referral to get Broncho-Alveolar Lavage testing in order to diagnose the cause. - If negative, recommend repeat CT scan in 6 months to re-evaluate the lesion. - Continue home medications. - Start Omeprazole x 6 weeks for acid reflux - Return to ED if symptoms worsen. Patient seen and care discussed with my senior resident, Dr. Patton, and my attending physician, Dr. Franklin Pedraza, PGY-1 Time Spent with Patient Time attestation: Total time spent providing and/or coordinating discharge services: Time spent: Greater than 30 minutes Exam Vital Signs Temp Pulse Resp BP Pulse Ox O2 Del Method 97.3 F 80 17 118/70 98 Room Air 08/22/24 12:00 08/22/24 12:00 08/22/24 12:00 08/22/24 12:00 08/22/24 12:08/22/24 12:00 Narrative Exam General: AAOx3, NAD, macedonian speaking female, pleasant HEENT: Moist mucous membranes, conjunctiva clear, EOMI, PERRLA, Cardiovascular: S1, S2, radial pulses +2 bilat, RRR Pulmonary: CTAB bilat no cough, no wheezing GI: No tenderness to light or deep palpitation, no guarding, rigidity, rebound tenderness or distension Extremities: No presence of trace or pitting edema in lower extremities bilaterally, dorsalis pedis pulses +2 bilaterally Neuro: AAOx3, no focal motor or sensory deficits in the UE or LE bilat Psych: Good judgement, thought and behavior Discharge Plan Plan Patient Disposition: HOME (Self Care) Disposition Comment: Stable Patient condition on transfer: Stable Care Plan Goals: - Follow up with PCP within 1 week - If you dont have a primary doctor, please follow up at the [facility] on [address] , Call: [phone] for appointment. - You have a cavitary lesion in the lungs. You will need a referral to get Broncho-Alveolar Lavage testing in order to diagnose the cause. - If negative, recommend repeat CT scan in 6 months to re-evaluate the lesion. - Continue home medications. - Start Omeprazole x 6 weeks for acid reflux - Return to ED if symptoms worsen. Prescriptions/Referrals Prescriptions/Med Rec: New omeprazole 20 mg capsule,delayed release(DR/EC) 20 mg PO QDAY 42 Days Qty: 42 0RF Continued Janumet 50-1,000 mg tablet 1 tab PO BID Discontinued azithromycin 250 mg tablet 250 mg PO QDAY 5 Days Qty: 6 0RF Rx Instructions: 500 mg p.o. day 1, 250 mg p.o. daily for 4 days Referrals: No Primary/Family,Physician [Primary Care Provider] - Jc Patton MD [Resident] - Patient/Caregiver Discharge Instructions Discharge Activity: resume usual activities Education Materials: Lung Anatomy, Tuberculosis (TB), Diabetes Tracking Your Fitness ... Print Language: Yi Stand Alone Forms: [employer] Award Info., Patient Portal Info Letter Discharge Order Discharge Orders: Discharge (Routine); Ordered 08/22/24 Ordered By: Jc Patton Quality Discharge Quality Measures VTE prophylaxis (heparin ) Attestestation MD Attestation I reviewed labs, imaging, EKG, home medications and prior available records. Face to face evaluation was performed by me. I have personally examined the patient and discussed assessment and plan with the IM team. I reviewed the resident note and agree with the plan with exceptions as below. See my addendum in a separate addendum note
== END 2024-08-22 12:06 | disposition home or self-care (01) | DRG 144 ==
LOC: SERX 08-19 00:26 → SERHOLD 08-19 00:39 → S3NX 08-19 02:08
PROVIDERS: Internal Medicine Infectious Disease; Admitting Provider Student in an Organized Health Care Education/Training Program; Emergency Provider Emergency Medicine; Visit Provider Student in an Organized Health Care Education/Training Program
DX: R91.1 Solitary pulmonary nodule (principal); D72.829 Elevated white blood cell count, unspecified; R91.8 Other nonspecific abnormal finding of lung field; E11.65 Type 2 diabetes mellitus with hyperglycemia; R10.13 Epigastric pain; R74.01 Elevation of levels of liver transaminase levels; R07.9 Chest pain, unspecified; Z78.9 Other specified health status; I95.9 Hypotension, unspecified; Z79.4 Long term (current) use of insulin; W01.0XXA Fall on same level from slipping, tripping and stumbling without subsequent striking against object, initial encounter; Z11.52 Encounter for screening for COVID-19
CPT/HCPCS: 36415; 71101; 71250; 80053; 80061; 80069; 80074; 83036; 83735; 84100; 84443; 85025; 85610; 85730; 86331; 86480; 86635; 86703; 87015; 87116; 87206; 87400; 87811; 89220; 93005; 94664; 94762; J1643; J1815; J1885; J3475; 94640; A9270

== ENCOUNTER 2025-03-06 04:42 | Emergency (ER) | payer MEDICAID, SELFPAY ==
[2025-03-06 04:42] VITALS: BMI 23.4
[2025-03-06 04:53] VITALS: BP 111/73; PULSE 82; RESP 18; TEMP 36.4; O2SAT 99
--- NOTE | 2025-03-06 05:12 | XR_ITS ---
Examination: CT chest, without intravenous contrast. Sagittal and coronal 2-D reconstructions. Exam date and time: March 06, 2025, 0600 hours, comparison August 18, 2024 INDICATIONS: CT chest August 18, 2024 26 mm thick-walled cavitary lesion left upper lobe CTDI:vol (mGy) 10.1 DLP: (mGycm) 320 Technique: Multiple 3.0 mm axial sections of the chest to been obtained. Bone and lung density settings are obtained. Sagittal and coronal 2-D reconstructions have been obtained. Low dose protocols were performed. One or more of the following dose reduction techniques were used; automated exposure control, adjustment of the mA and/or KV according to patient size, use of iterative reconstruction technique. Findings: No thoracic aortic aneurysm dilatation. No paratracheal tracheobronchial or bronchopulmonary adenopathy Enlarging thick-walled cavitary lesion in the left upper lobe, currently 28 mm No interval pneumonia or pulmonary edema No visualized liver or splenic lesion Cholelithiasis No pancreatic mass No hydronephrosis Intact osseous structures IMPRESSION: Enlarging thick-walled cavitary lesion in the left upper lobe, currently 28 mm, highest on the differential list is infectious processes including active tuberculosis, coccidioidomycosis, pulmonary neoplasm not excluded Cholelithiasis, recommend hepatobiliary sonography follow-up
--- NOTE | 2025-03-06 05:12 | XR_ITS ---
Examination: CT brain head without contrast. 2-D sagittal coronal reconstructions Date and time of exam:March 06, 2025, 0555 hours INDICATIONS: Headache dizziness and vomiting today CTDI: vol (mGy):46.8 DLP: (mGycm):937 Technique: Multiple CT axial sections of the brain have been obtained, 5 mm slice thickness. Contrast has not been administered. 2-D sagittal, coronal reconstructions have been obtained Low dose protocols were performed. One or more of the following dose reduction techniques were used; automated exposure control, adjustment of the mA and/or KV according to patient size, use of iterative reconstruction technique. Findings: No significant ventricular enlargement. Intra-axial or extra-axial hemorrhage density is not seen. No mass effect or midline shift Basal cisterns are not remarkable. Fourth ventricle is midline. Cranial vault intact. Impression: Negative for acute hemorrhage, mass effect or midline shift
--- NOTE | 2025-03-06 05:13 | PD.EDRME ---
Rapid Medical Screening Exam E Arrival date/time: 03/06/25 04:42 44F with history of DM presents to ED with 1 day of [place], dizziness, and N/V. Mild epigastric pain after N/V, but patient is more concerned about [place]. Son with her states normal behavior/speech since onset. Patient denies vision changes. Separately, patient was admitted here about 6 months ago for cavitary lesion. Patient was supposed to follow-up with a specialist to discover etiology, but hasn't. It was recommended patient get a repeat CT in 6 months to monitor lesion. Patient would like to do that today since she's already here. She denies any SOB/CP. Chief Complaint: Nausea/Vomiting/Diarrhea Vital signs: Vital Signs Temperature 97.5 F 03/06/25 04:53 Pulse Rate 82 03/06/25 04:53 Respiratory Rate 18 03/06/25 04:53 Blood Pressure 111/73 03/06/25 04:53 Pulse Oximetry (%) 99 03/06/25 04:53 Oxygen Delivery Method Room Air 03/06/25 04:53
[2025-03-06] MEDS: SUMAtriptan INJ 6 MG/0.5 ML VIAL SC (05:30)
[2025-03-06] MEDS: METOCLOPRAMIDE 5 MG TABLET 10 MG PO (05:30)
[2025-03-06 06:37] LABS: Collection Type, Urine Clean Catch
[2025-03-06 06:41] LABS: Bacteria,Urine Rare; Bilirubin,Urine Negative (Negative); Blood,Urine Negative (Negative); Clarity,Urine Turbid (Clear/Hazy); Color,Urine Yellow (Lt Yel-Yel); Culture Indicated,Urine Contaminated; Glucose, Urine 4+ (Negative); Ketones,Urine Trace (Negative); Leukocyte Esterase,Urine Positive (Negative); Nitrite,Urine Negative (Negative); PH,Urine 6.5 (5.0-7.0); Protein,Urine 1+ (Neg - Trace); RBC,Urine 4 /hpf (0-3); Specific Gravity,Urine 1.029 (1.001-1.035); Squamous Epithelial Cell,Urine 25 /hpf (0-5); Urobilinogen,Urine Negative mg/dL (0.0-1.0); WBC,Urine 14 /hpf (0-5)
[2025-03-06 06:42] LABS: HCG Qualitative,Urine Negative
[2025-03-06 07:23] LABS: Basophils # (Auto) 0.0 Thou/mm3 (0.0-0.2); Basophils % (Auto) 1 % (0-2.5); Immature Granulocytes Auto 0.02 Thou/mm3 (0.00-0.00); Nucleated Red Blood Cell # 0.00 Thou/mm3 (0.00-0.00); Nucleated Red Blood Cell % 0 /100 WBC (0); RDW Standard Deviation 42.6 fL (36.4-46.3)
[2025-03-06 07:34] LABS: Eosinophils # (Auto) 0.1 Thou/mm3 (0.0-0.5); Eosinophils % (Auto) 1 % (0-10); Hematocrit 37.5 % (36.0-46.0); Hemoglobin 12.7 g/dL (12.0-16.0); Lymphocytes # (Auto) 1.6 Thou/mm3 (1.0-4.8); Lymphocytes % (Auto) 24 % (10-50); Mean Corpuscular HGB Conc 33.9 g/dl (31.0-37.0); Mean Corpuscular Hemoglobin 31.8 pg (25.0-35.0); Mean Corpuscular Volume 94 fL (80-100); Monocytes # (Auto) 0.3 Thou/mm3 (0.0-0.8); Monocytes % (Auto) 5 % (0-12); Neutrophils # (Auto) 4.7 Thou/mm3 (1.8-7.7); Neutrophils % (Auto) 69 % (37-80); Platelet Count 210 Thou/mm3 (140-440); Red Blood Count 3.99 Miln/mm3 (4.00-5.20); White Blood Count 6.8 Thou/mm3 (3.6-11.0)
[2025-03-06 08:05] LABS: Alanine Aminotransferase 45 U/L (10-49); Albumin, Serum 4.2 gm/dL (3.5-5.0); Albumin/Globulin Ratio 1.6 (1.2-2.2); Alkaline Phosphatase 88 U/L (46-116); Anion Gap 10 (7-16); Aspartate Amino Transferase 38 U/L (0-34); BUN/Creatinine Ratio 18 Ratio (12-20); Bilirubin,Total 0.5 mg/dL (0.3-1.2); Blood Urea Nitrogen 9 mg/dL (9-23); Calcium 9.1 mg/dL (8.3-10.6); Calcium (Corrected) 9.1 mg/dL (8.5-10.1); Carbon Dioxide 26.8 mMol/L (20.0-31.0); Chloride 102 mMol/L (98-107); Creatinine (Component) 0.5 mg/dL (0.6-1.3); Estimated Creatinine Clearance 105.3 mL/min (>60); Globulin 2.6 gm/dL (2.3-3.5); Glucose 197 mg/dL (74-106); Lipase 26 U/L (12-53); Osmolality,Calculated 281 (275-295); Potassium 4.0 mMol/L (3.4-5.1); Sodium 139 mMol/L (136-145); Total Protein 6.8 gm/dL (5.7-8.2); eGFR > 60 See Note
[2025-03-06 10:19] VITALS: BP 121/77; PULSE 71; RESP 16; TEMP 36.7; O2SAT 100
--- NOTE | 2025-03-06 10:38 | PD.EDNV ---
Nausea/Vomit./Diarrhea-RME/HPI General Chief complaint: Nausea/Vomiting/Diarrhea Stated complaint: SANFORD, DIZZINESS, VOMITING Time Seen by Provider: 03/06/25 08:03 Arrival date/time: 03/06/25 04:42 Limitations: no limitations RME / HPI RME / HPI Narrative: 03/06/25 04:42 44F with history of DM presents to ED with 1 day of SANFORD, dizziness, and N/V. Mild epigastric pain after N/V, but patient is more concerned about SANFORD. Son with her states normal behavior/speech since onset. Patient denies vision changes. Separately, patient was admitted here about 6 months ago for cavitary lesion. Patient was supposed to follow-up with a specialist to discover etiology, but hasn't. It was recommended patient get a repeat CT in 6 months to monitor lesion. Patient would like to do that today since she's already here. She denies any SOB/CP. Related Data Home Medications ?Medication ?Instructions ?Recorded ?Confirmed sitagliptin phosphate 50 1 tab PO BID 08/19/24 08/19/24 mg-metformin 1,000 mg tablet (Janumet) Allergies Allergy/AdvReac Type Severity Reaction Status Date / Time vancomycin Allergy Severe Rash Verified 03/06/25 04:45 Review of Systems Review of Systems Systems Reviewed: All systems reviewed, normal except as documented Past Medical History Past Medical History NEUROLOGIC: Negative Neurological Disorders CARDIAC: Negative Cardiac Disorders or Congestive Heart Failure RESPIRATORY: Negative Chronic Obstructive Pulmonary Disease (COPD) GASTROINTESTINAL: Negative Gastrointestinal Disorders GENITOURINARY: Positive Renal Disease; Negative Genitourinary Disorders MUSCULOSKELETAL: Negative Musculoskeletal Disorders ENDOCRINE: Positive Endocrine Disorders and Diabetes Mellitus Type 2; Negative Diabetes Mellitus Type 1 HEMATOLOGIC: Negative Blood Disorders OTHER HISTORY: Positive Falls; Negative Hospitalization, Autoimmune Disease, Down Syndrome, Developmental Delay, Shingles, Blood Transfusions, Blood Transfusion Reaction, Anesthesia Reactions, Human Immunodeficiency Virus (HIV), Chicken Pox, Clostridium Difficile or Cancer Family History FAMILY HISTORY: Negative Family Psychiatric Problems, Family Respiratory Disorders, Family Cardiac Disorders, Family Gastrointestinal Problems or Family Cancer Social History SMOKING STATUS: Never smoker SECOND HAND EXPOSURE: No ED Exam General Limitations: Present no limitations General appearance: Present alert and in no apparent distress Head Head exam: Present atraumatic Eye Eye exam: Present normal appearance, PERRL and EOMI ENT ENT exam: Present normal exam, normal oropharynx and mucous membranes moist Neck Neck exam: Present normal inspection, full ROM and trachea midline Chest Chest inspection: Present normal inspection and symmetric chest wall rise Respiratory Respiratory exam: Present normal lung sounds bilaterally Cardiovascular Cardiovascular exam: Present regular rate, normal rhythm and normal heart sounds Abdominal Exam Abdominal exam: Present soft and normal bowel sounds Extremities Exam Extremities exam: Present normal inspection and full ROM Back Exam Back exam: Present normal inspection and full ROM Neurological Exam Neurological exam: Present alert, oriented X3 and CN II-XII intact Psychiatric Psychiatric exam: Present normal affect and normal mood Skin Skin exam: Present warm, dry, intact and normal color Course Quality Measures none Orders Category Date Time Status Blood glucose [Bedside Blood Glucose] NOW Care 03/06/25 05:[address] chest wo con Stat Exams 03/06/25 05:[address] head/brain wo con Stat Exams 03/06/25 05:12 Completed CBC Stat Lab 03/06/25 07:15 Completed Comprehensive Metabolic Panel Stat Lab 03/06/25 07:15 Completed HCG Qualitative,Urine Stat Lab 03/06/25 05:20 Completed Lipase Stat Lab 03/06/25 07:15 Completed UA, C/S IF [Urinalysis, C/S if Indicated] Stat Lab 03/06/25 05:20 Completed Metoclopramide [Reglan] Med 03/06/25 05:12 Discontinued 10 mg PO X1 ONE SUMAtriptan INJ [Imitrex Inj] Med 03/06/25 05:12 Discontinued 6 mg SC X1 ONE Vital Signs Vital signs: Vital Signs Temperature 97.5 F 03/06/25 04:53 Pulse Rate 82 03/06/25 04:53 Respiratory Rate 18 03/06/25 04:53 Blood Pressure 111/73 03/06/25 04:53 Pulse Oximetry (%) 99 03/06/25 04:53 Oxygen Delivery Method Room Air 03/06/25 04:53 Pulse ox is 99% on room air which is adequate. Nausea/Vomiting/Diarrhea MDM Narrative MDM Narrative:: Patient is a 44-year-old female female with nausea vomiting over the last day. She is feeling much better now and Patient data External records reviewed:: [facility] previous records (I reviewed admission from 08/19/2024 through 08/22/2024 ) Clinical information provided by:: patient Social determinants that could affect healthcare access:: none Patient has the following chronic illnesses:: Diabetes How is presenting disease/condition affected by chronic disease/condition?: uneffected by Evaluation data The following diagnostics were reviewed and interpreted by me:: lab results (Glucose is elevated at 197 urinalysis is negative with many squamous epithelium otherwise the laboratories look normal) and radiology exam(s) Lab and/or radiology exams considered but not ordered:: blood culture Interpretation Summary: Ordering Physician: Ke Tanner PA-C Date of Service: 03/06/25 Procedure(s): CT chest wo con Accession Number(s): [id number] cc: Floyd Hayes MD; Ke Tanner PA-C~ Examination: CT chest, without intravenous contrast. Sagittal and coronal 2-D reconstructions. Exam date and time: March 06, 2025, 0600 hours, comparison August 18, 2024 INDICATIONS: CT chest August 18, 2024 26 mm thick-walled cavitary lesion left upper lobe CTDI:vol (mGy) 10.1 DLP: (mGycm) 320 Technique: Multiple 3.0 mm axial sections of the chest to been obtained. Bone and lung density settings are obtained. Sagittal and coronal 2-D reconstructions have been obtained. Low dose protocols were performed. One or more of the following dose reduction techniques were used; automated exposure control, adjustment of the mA and/or KV according to patient size, use of iterative reconstruction technique. Findings: No thoracic aortic aneurysm dilatation. No paratracheal tracheobronchial or bronchopulmonary adenopathy Enlarging thick-walled cavitary lesion in the left upper lobe, currently 28 mm No interval pneumonia or pulmonary edema No visualized liver or splenic lesion Cholelithiasis No pancreatic mass No hydronephrosis Intact osseous structures IMPRESSION: Enlarging thick-walled cavitary lesion in the left upper lobe, currently 28 mm, highest on the differential list is infectious processes including active tuberculosis, coccidioidomycosis, pulmonary neoplasm not excluded Cholelithiasis, recommend hepatobiliary sonography follow-up Ordering Physician: Ke Tanner PA-C Date of Service: 03/06/25 Procedure(s): CT head/brain wo con Accession Number(s): [id number] cc: Floyd Hayes MD; Ke Tanner PA-C~ Examination: CT brain head without contrast. 2-D sagittal coronal reconstructions Date and time of exam:March 06, 2025, 0555 hours INDICATIONS: Headache dizziness and vomiting today CTDI: vol (mGy):46.8 DLP: (mGycm):937 Technique: Multiple CT axial sections of the brain have been obtained, 5 mm slice thickness. Contrast has not been administered. 2-D sagittal, coronal reconstructions have been obtained Low dose protocols were performed. One or more of the following dose reduction techniques were used; automated exposure control, adjustment of the mA and/or KV according to patient size, use of iterative reconstruction technique. Findings: No significant ventricular enlargement. Intra-axial or extra-axial hemorrhage density is not seen. No mass effect or midline shift Basal cisterns are not remarkable. Fourth ventricle is midline. Cranial vault intact. Impression: Negative for acute hemorrhage, mass effect or midline shift Dictated By: Floyd Hayes MD Signed By: <Electronically signed by Floyd Hayes MD in OV> 03/06/25 0610 Medications / Prescriptions Medications / Prescriptions considered but not ordered:: None Medication administrations:: Medication Administration History Discontinued Medications Metoclopramide HCl (Metoclopramide 5 Mg Tablet) 10 mg PO X1 ONE Stop: 03/06/25 05:13 Last Admin: 03/06/25 05:30 Dose: 10 mg Documented By: TEJAS Sumatriptan Succinate (Sumatriptan Inj 6 Mg/0.5 Ml Vial) 6 mg SC X1 ONE Stop: 03/06/25 05:13 Last Admin: 03/06/25 05:30 Dose: 6 mg Documented By: TEJAS See above Consultations Consultation(s) initiated? (list below): No Diagnosis Nausea Differential Diagnosis: gastroenteritis, drug-induced nausea and vomiting and dehydration Most likely diagnosis given after review of the tests above:: gastroenteritis cavitary lesion of lung Admission Indicated Admission indicated?: not indicated Admission Request Was there a request for admission?: No Disposition Plan Disposition Plan: Discharge Discharge Attestation Discharge Attestation: The patient and all family members were given an opportunity to ask questions and understood the discharge instructions. Discharge instructions specifically effects, indications for sooner follow up or return to the emergency department, and the expected course of current diagnosis. Patient condition: Stable Discharge Plan Plan Patient Disposition: HOME (Self Care) Prescriptions/Referrals Prescriptions/Med Rec: No Action Janumet 50-1,000 mg tablet 1 tab PO BID Referrals: No Primary/Family,Physician [Primary Care Provider] - In 1 week Problem List Clinical Impression: Gastroenteritis, Cavitary lesion of lung Patient/Caregiver Discharge Instructions Other Activity Instructions:: Follow-up with your primary doctor. Please be aware that your lung findings on CAT scan showed that the cavitary area has gotten slightly larger. Consider pulmonary consultation. Education Materials: ED Gastroenteritis, Noninfectious Additional Instructions: Drink plenty of fluids. See your doctor in the next week if needed. Follow-up with your doctor regarding the cavitary lung finding on your CAT scan and consider pulmonary physician evaluation. Take Tylenol 500 mg 1 every 6 hours as needed for pain. Print Language: Ukrainian Stand Alone Forms: [employer] Award Info., Patient Portal Info Letter
[2025-03-06 12:31] VITALS: BP 108/62; PULSE 77; RESP 16; TEMP 36.7; O2SAT 100
[2025-03-06 13:41] VITALS: BP 102/69; PULSE 79; RESP 16; O2SAT 100
== END 2025-03-06 13:42 | disposition home or self-care (01) ==
PROVIDERS: Nurse Practitioner Primary Care; Physician Assistant; Emergency Provider Family Medicine
DX: K52.9 Noninfective gastroenteritis and colitis, unspecified (principal); J98.4 Other disorders of lung; K80.20 Calculus of gallbladder without cholecystitis without obstruction; R42 Dizziness and giddiness; R51.9 Headache, unspecified
CPT/HCPCS: 36415; 70450; 71250; 80053; 81001; 81025; 83690; 85025; 96372; 99284; J3030; A9270

== ENCOUNTER 2025-05-17 08:56 | Emergency (ER) | payer MEDICAID, SELFPAY ==
[2025-05-17 08:57] VITALS: BMI 25.0
[2025-05-17 10:09] VITALS: BP 100/66; PULSE 76; RESP 16; TEMP 36.9; O2SAT 99
--- NOTE | 2025-05-17 10:26 | XR_ITS ---
EXAMINATION: Ankle, right 3 views. Technique: Ankle AP, oblique, lateral 3 views Date and time of exam: May 17, 2025, 1005 hours INDICATIONS: Sudden onset right foot and ankle pain beginning 2 days ago FINDINGS: No fracture or dislocation. No cortical bone destruction IMPRESSION: No fracture or dislocation
--- NOTE | 2025-05-17 10:26 | XR_ITS ---
Examination: Foot, right, 3 views Technique: AP, oblique, lateral views foot, 3 views Date and time of exam: May 17, 2025, 1050 hours INDICATIONS: Sudden onset right foot pain beginning 2 days ago FINDINGS: No fracture or dislocation. No cortical bone destruction. No foreign body IMPRESSION: No fracture or dislocation
--- NOTE | 2025-05-17 10:28 | EDNOTE_ITS ---
Lower Extremity Injury RME/HPI General Chief Complaint: Ankle/Foot Injury Stated Complaint: RIGHT FOOT PAIN Time Seen by Provider: 05/17/25 09:11 Arrival date/time: 05/17/25 08:56 This is a 44-year-old female that comes into the emergency room with complaints of right foot pain. Patient states she was cleaning outside yesterday and thinks she stepped on her right foot wrong. Patient denies any other injuries. Patient has mild swelling to her right foot. Related Data Home Medications ?Medication ?Instructions ?Recorded ?Confirmed sitagliptin phosphate 50 1 tab PO BID 08/19/24 mg-metformin 1,000 mg tablet (Janumet) Previous Rx's ?Medication ?Instructions ?Recorded ibuprofen 800 mg tablet 800 mg PO Q6H PRN pain #14 t abs 05/17/25 Allergies Allergy/AdvReac Type Severity Reaction Status Date / Time vancomycin Allergy Severe Rash Verified 05/17/25 08:59 Review of Systems Review of Systems Systems Reviewed: All systems reviewed, normal except as documented Past Medical History Past Medical History NEUROLOGIC: Negative Neurological Disorders CARDIAC: Negative Cardiac Disorders or Congestive Heart Failure RESPIRATORY: Negative Chronic Obstructive Pulmonary Disease (COPD) GASTROINTESTINAL: Negative Gastrointestinal Disorders GENITOURINARY: Positive Renal Disease; Negative Genitourinary Disorders MUSCULOSKELETAL: Negative Musculoskeletal Disorders ENDOCRINE: Positive Endocrine Disorders and Diabetes Mellitus Type 2; Negative Diabetes Mellitus Type 1 HEMATOLOGIC: Negative Blood Disorders OTHER HISTORY: Positive Falls; Negative Hospitalization, Autoimmune Disease, Down Syndrome, Developmental Delay, Shingles, Blood Transfusions, Blood Transfusion Reaction, Anesthesia Reactions, Human Immunodeficiency Virus (HIV), Chicken Pox, Clostridium Difficile or Cancer Family History FAMILY HISTORY: Negative Family Psychiatric Problems, Family Respiratory Disorders, Family Cardiac Disorders, Family Gastrointestinal Problems or Family Cancer Social History SMOKING STATUS: Never smoker SECOND HAND EXPOSURE: No ED Exam Narrative Physical exam: VITAL SIGNS: Reviewed. GENERAL APPEARANCE: Alert and interactive, follows commands, no acute distress HEAD AND FACE: Non-traumatic. ENT: PERRL, conjuctiva pink and clear, eyelid no trauma, Mucous membrane moist. NECK: Supple, nontender, no nuchal rigidity. CHEST: No tenderness, no crepitus, no paradoxical movement, no retractions. LUNGS: breathing even and unlabored HEART: Regular rate, cap refill less than 2 seconds ABDOMEN: Soft, nondistended, no guarding, nontender, no rebound, no masses, NEUROLOGICAL: Gross motor function intact sensory function intact, Appropriate for age. MUSCULOSKELETAL: low back nontender, full range of motion. EXTREMITIES: No redness no swelling no skin breakdown on bilateral foot and leg. Distal neurovascular status intact bilateral foot SKIN: Color pink, dry, no pain to palpation to medial or lateral ankle. Pain when stepping on floor. Course Quality Measures none Orders Category Date Time Status XR ankle comp RT min 3V Stat Exams 05/17/25 10:26 Completed XR foot comp RT min 3V Stat Exams 05/17/25 10:26 Completed Acetaminophen Tab [Tylenol ES Tab] Med 05/17/25 10:27 Discontinued 1,000 mg PO X1 ONE Ibuprofen Tab [Motrin Tab] Med 05/17/25 10:27 Discontinued 800 mg PO X1 ONE Vital Signs Vital signs: Vital Signs Temperature 98.4 F 05/17/25 10:09 Pulse Rate 76 05/17/25 10:09 Respiratory Rate 16 05/17/25 10:09 Blood Pressure 100/66 05/17/25 10:09 Pulse Oximetry (%) 99 05/17/25 10:09 Oxygen Delivery Method Room Air 05/17/25 10:09 Extremity Injury, Lower MDM Narrative MDM Narrative:: foot x ray: FINDINGS: No fracture or dislocation. No cortical bone destruction. No foreign body IMPRESSION: No fracture or dislocation ankle x ray: FINDINGS: No fracture or dislocation. No cortical bone destruction IMPRESSION: No fracture or dislocation Patient feels better after pain medication. Patient able to move Right ankle no issues. Today patient had xray. There was no acute fracture seen. Exam appeared unremarkable. I explained to patient at length that if there was continued pain to this area or worsened to come back to ED or see primary provider for more xrays or further testing such as CT scan or MRI. X rays are not perfect and sometimes serial films needed. Patient verbalized understanding. Patient states they will follow up with primary provider in 1-2 days or come back to ED if symptoms change or worsen. Lynseyon dictation: Although this document has been carefully reviewed, there may still be some phonetic and other typographical errors. These errors are purely grammatical due to imperfections in the software program and should not be construed in any way to compromise the substance of the patient's medical care during this visit. Patient data External records reviewed:: [facility] previous records Clinical information provided by:: patient Social determinants that could affect healthcare access:: none Patient has the following chronic illnesses:: none How is presenting disease/condition affected by chronic disease/condition?: no chronic disease Evaluation data The following diagnostics were reviewed and interpreted by me:: lab results Lab and/or radiology exams considered but not ordered:: none Interpretation Summary: see note Medications / Prescriptions Medications or Prescriptions considered but not ordered:: none Medication administrations:: Medication Administration History Discontinued Medications Acetaminophen (Acetaminophen 500 Mg Tablet) 1,000 mg PO X1 ONE Stop: 05/17/25 10:28 Last Admin: 05/17/25 11:07 Dose: 1,000 mg Documented By: LF Ibuprofen (Ibuprofen Tab 400 Mg Tablet) 800 mg PO X1 ONE Stop: 05/17/25 10:28 Last Admin: 05/17/25 11:08 Dose: 800 mg Documented By: JUSTINA none Consultations Consultation(s) initiated? (list below): No Diagnosis Most likely diagnosis given after review of the tests above:: ankle contusion Admission Indicated Admission indicated?: not indicated Admission Request Was there a request for admission?: No Disposition Plan Disposition Plan: Discharge Discharge Attestation Discharge Attestation: The patient and all family members were given an opportunity to ask questions and understood the discharge instructions. Discharge instructions specifically effects, indications for sooner follow up or return to the emergency department, and the expected course of current diagnosis. Patient condition: Stable Discharge Plan Plan Patient Disposition: HOME (Self Care) Patient condition on transfer: Stable Prescriptions/Referrals Prescriptions/Med Rec: New ibuprofen 800 mg tablet 800 mg PO Q6H PRN (Reason: pain) Qty: 14 0RF No Action Janumet 50-1,000 mg tablet 1 tab PO BID Referrals: Rui Lam MD [Primary Care Provider, Family Practice] - In 1 week Problem List Clinical Impression: Ankle contusion Patient/Caregiver Discharge Instructions Discharge Activity: activity as tolerated Education Materials: Bruises (Contusions) Additional Instructions: Randy un becky con [facility] en las proximas 24-48 horas. Regrese a la jairo de emergencias si hay evidencia de que los signos o sintomas empeoran. Print Language: [place] Stand Alone Forms: [employer] Award Info., Patient Portal Info Letter PA/BUSINESS OBJECTS DEVELOPER Supervising Physician PA/ZIGGY Supervising Physician: marisabel
[2025-05-17] MEDS: ACETAMINOPHEN 500 MG TABLET 1000 MG PO (11:07)
[2025-05-17] MEDS: IBUPROFEN TAB 400 MG TABLET 800 MG PO (11:08)
== END 2025-05-17 13:15 | disposition home or self-care (01) ==
PROVIDERS: Emergency Provider Emergency Medicine; PCP Family Medicine
DX: S90.01XA Contusion of right ankle, initial encounter (principal); W22.8XXA Striking against or struck by other objects, initial encounter
CPT/HCPCS: 73610; 73630; 99283; A9270

== ENCOUNTER 2025-06-19 08:45 | Emergency (ER) | payer MEDICAID, SELFPAY ==
[2025-06-19 08:47] VITALS: BMI 24.0
[2025-06-19 08:59] VITALS: BP 117/81; PULSE 115; RESP 18; TEMP 37.5; O2SAT 96
--- NOTE | 2025-06-19 09:30 | PD.EDRME ---
Rapid Medical Screening Exam RME Arrival date/time: 06/19/25 08:45 Chief Complaint: Shortness of Breath/Dyspnea Time Seen by Provider: 06/19/25 09:19 Vital signs: Vital Signs Temperature 99.5 F 06/19/25 08:59 Pulse Rate 115 H 06/19/25 08:59 Respiratory Rate 18 06/19/25 08:59 Blood Pressure 117/81 06/19/25 08:59 Pulse Oximetry (%) 96 06/19/25 08:59 Oxygen Delivery Method Room Air 06/19/25 08:59 RME Narrative: 44-year-old female with past medical history of diabetes who presents to the ER complaining of fever, cough, congestion, sore throat, shortness of breath when coughing, chest pain with coughing which started on Monday she saw her primary on Monday advised at this is a viral illness however symptoms have continued therefore she presents to the ER. Denies any nausea vomiting. I briefly performed a screening evaluation to initiate work-up and expedite care. Complete history, physical exam, and plan of care is deferred to the provider in the main ED. Exam: Head: Normocephalic, atraumatic. Respiratory: Normal effort. No respiratory distress or accessory muscle use. Neuro: Speech normal. Skin: Warm, dry, normal color. Psych: Pleasant. Normal affect. Cooperative. Clinical Impression: Upper respiratory infection with tachycardia
--- NOTE | 2025-06-19 09:31 | XR_ITS ---
Upright PA chest film on 06/19/2025 at 9:37 a.m. Comparison is made with the previous rib series and chest x-ray dated 08/18/2024 It is noted on the previous chest film that there was a lobulated noncalcified 2.2 cm diameter nodular lesion seen laterally in the left midlung. The radiographic report at that time included lung cancer in the differential diagnosis. Since the previous film this ill-defined mass lesion has enlarged to 4.4 cm, and there is a definite patch of alveolar infiltrate surrounding the medial margin of this mass lesion. It now is cavitated with a small amount of fluid in the cavity. I do not see any hilar or mediastinal lymphadenopathy. Heart size is normal. Remainder of both lungs and pleural space are clear. Bony skeleton appears unremarkable. IMPRESSION: 1. 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 Chest CT with IV contrast is definitely recommended. Referral to a retirement plan counselor or chest surgeon is very definitely recommended.
--- NOTE | 2025-06-19 09:31 | EKG_ITS ---
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
--- NOTE | 2025-06-19 09:31 | XR_ITS ---
Examination: Abdomen sonogram, Limited Date and time of exam: June 19, 2025, 1032 hours INDICATIONS: Cough and shortness of breath epigastric pain beginning 3 weeks ago Technique: Real-time enriquez scale transabdominal sonographic images of the upper abdomen obtained. Findings: Multiple gallstones Gallbladder wall 0.2 cm Common bile duct 0.3 cm Pancreatic head 2.4 cm Liver 17.5 cm fatty infiltration smooth contour Normal hepatopetal portal venous flow Patent IVC IMPRESSION: Cholelithiasis, negative for cholecystitis Moderate hepatomegaly
[2025-06-19 10:06] LABS: Lactate (Lactic Acid) 2.7 mMol/L (0.4-2.0)
[2025-06-19 10:13] LABS: Basophils # (Auto) 0.0 Thou/mm3 (0.0-0.2); Basophils % (Auto) 0 % (0-2.5); Eosinophils # (Auto) 0.2 Thou/mm3 (0.0-0.5); Eosinophils % (Auto) 2 % (0-10); Hematocrit 36.9 % (36.0-46.0); Hemoglobin 12.7 g/dL (12.0-16.0); Immature Granulocytes Auto 0.04 Thou/mm3 (0.00-0.00); Lymphocytes # (Auto) 1.0 Thou/mm3 (1.0-4.8); Lymphocytes % (Auto) 12 % (10-50); Mean Corpuscular HGB Conc 34.4 g/dl (31.0-37.0); Mean Corpuscular Hemoglobin 31.1 pg (25.0-35.0); Mean Corpuscular Volume 90 fL (80-100); Monocytes # (Auto) 0.5 Thou/mm3 (0.0-0.8); Monocytes % (Auto) 6 % (0-12); Neutrophils # (Auto) 6.8 Thou/mm3 (1.8-7.7); Neutrophils % (Auto) 79 % (37-80); Nucleated Red Blood Cell # 0.00 Thou/mm3 (0.00-0.00); Nucleated Red Blood Cell % 0 /100 WBC (0); Platelet Count 303 Thou/mm3 (140-440); RDW Standard Deviation 38.5 fL (36.4-46.3); Red Blood Count 4.09 Miln/mm3 (4.00-5.20); White Blood Count 8.5 Thou/mm3 (3.6-11.0)
[2025-06-19] MEDS: ACETAMINOPHEN 500 MG TABLET 1000 MG PO (10:16)
[2025-06-19 10:24] LABS: Collection Type, Urine Voided
[2025-06-19 10:25] LABS: INR 0.9 (0.9-1.3); Prothrombin Time 10.1 Seconds (9.0-12.2)
[2025-06-19 10:30] LABS: Alanine Aminotransferase 14 U/L (10-49); Albumin, Serum 4.1 gm/dL (3.5-5.0); Albumin/Globulin Ratio 1.1 (1.2-2.2); Alkaline Phosphatase 100 U/L (46-116); Anion Gap 12 (7-16); Aspartate Amino Transferase 15 U/L (0-34); BUN/Creatinine Ratio 11 Ratio (12-20); Bilirubin,Total 0.3 mg/dL (0.3-1.2); Blood Urea Nitrogen 8 mg/dL (9-23); Calcium 8.8 mg/dL (8.3-10.6); Calcium (Corrected) 8.8 mg/dL (8.5-10.1); Carbon Dioxide 25.2 mMol/L (20.0-31.0); Chloride 98 mMol/L (98-107); Creatinine (Component) 0.7 mg/dL (0.6-1.3); Estimated Creatinine Clearance 85.5 mL/min (>60); Globulin 3.7 gm/dL (2.3-3.5); Glucose 374 mg/dL (74-106); Lipase 34 U/L (12-53); Osmolality,Calculated 283 (275-295); Potassium 3.6 mMol/L (3.4-5.1); Sodium 135 mMol/L (136-145); Total Protein 7.8 gm/dL (5.7-8.2); Troponin I < 0.002 ng/mL (0.0-0.045); eGFR > 60 See Note
[2025-06-19 10:31] LABS: HCG Qualitative,Urine Negative
--- NOTE | 2025-06-19 10:38 | EDNOTE_ITS ---
ED General RME/HPI General Chief complaint: Shortness of Breath/Dyspnea Stated complaint: COUGH, THROAT PAIN, NASAL CONGESTION, SOB Time Seen by Provider: 06/19/25 09:19 Arrival date/time: 06/19/25 08:45 RME / HPI RME / HPI narrative: 44-year-old female with past medical history of diabetes who presents to the ER complaining of fever, cough, congestion, sore throat, shortness of breath when coughing, chest pain with coughing which started on Monday she saw her primary on Monday advised at this is a viral illness however symptoms have continued therefore she presents to the ER. Denies any nausea vomiting. I briefly performed a screening evaluation to initiate work-up and expedite care. Complete history, physical exam, and plan of care is deferred to the provider in the main ED. Exam: Head: Normocephalic, atraumatic. Respiratory: Normal effort. No respiratory distress or accessory muscle use. Neuro: Speech normal. Skin: Warm, dry, normal color. Psych: Pleasant. Normal affect. Cooperative. Impression: Upper respiratory infection with tachycardia Related Data Home Medications ?Medication ?Instructions ?Recorded ?Confirmed sitagliptin phosphate 50 1 tab PO BID 08/19/24 mg-metformin 1,000 mg tablet (Janumet) Previous Rx's ?Medication ?Instructions ?Recorded ibuprofen 800 mg tablet 800 mg PO Q6H PRN pain #14 t abs 05/17/25 benzonatate 100 mg capsule 100 mg PO TID PRN cough 1 w tetlin #21 06/19/25 caps Allergies Allergy/AdvReac Type Severity Reaction Status Date / Time vancomycin Allergy Severe Rash Verified 06/19/25 08:46 ED Exam Narrative Physical exam: Physical Exam: GENERAL: Awake, answering questions appropriately in Cambodian, appears stated age HEENT: NC/AT. Moist mucosa. PERRLA/EOMI. CARDIO: Heart RRR, no obvious murmurs, no JVD. PULM: No coughing or visible SOB. Patient coughing, dry. Right upper lung field noted to have wheezing otherwise clear to auscultation bilaterally. GI: Abdomen soft, NT/ND, +BS. SKIN/MSK/EXT: No wounds/discoloration/rashes/edema/amputations. +Pedal pulses present B/L. NEURO: Oriented x3, Moves extremities x4, no focal neurologic deficits noted. Course Quality Measures none Orders Category Date Time Status EKG (ED ONLY) *Do not use* NOW Care 06/19/25 09:31 Completed CXR [XR chest 1V] Stat Exams 06/19/25 09:31 Completed EKG (ED Only) Stat Exams 06/19/25 09:31 Draft US gall bladder Stat Exams 06/19/25 09:31 Completed Blood Culture (Lab) Stat Lab 06/19/25 09:50 Received CBC Stat Lab 06/19/25 09:50 Completed CMP [Comprehensive Metabolic Panel] Stat Lab 06/19/25 09:50 Completed HCG Qualitative,Urine Stat Lab 06/19/25 10:11 Completed INR [Prothrombin Time with INR] Stat Lab 06/19/25 09:50 Completed Lactate (Lactic Acid) Stat Lab 06/19/25 12:36 Completed Lactic Acid [Lactate (Lactic Acid)] Stat Lab 06/19/25 09:50 Completed Lipase Stat Lab 06/19/25 09:50 Completed Troponin I Stat Lab 06/19/25 09:50 Completed UA, C/S IF [Urinalysis, C/S if Indicated] Stat Lab 06/19/25 10:11 Completed ALBUTEROL RT 0.5ml [Proventil Rt 0.5ml] Med 06/19/25 09:37 Discontinued 2.5 mg INH X1 ONE Acetaminophen Tab [Tylenol ES Tab] Med 06/19/25 09:32 Discontinued 1,000 mg PO X1 ONE Benzonatate [Tessalon] Med 06/19/25 11:06 Discontinued 100 mg PO X1 ONE Ipratropium Hepler Rt Leyda [Atrovent Rt Leyda] Med 06/19/25 09:37 Discontinued 0.5 mg INH X1 ONE Sodium Chloride 0.9% 1000 ml [Ns] 1,000 ml Med 06/19/25 09:32 Discontinued IV 999 mls/hr Sodium Chloride Rt Leyda 0.9% [NS Rt Leyda 0.9%] Med 06/19/25 09:37 Discontinued 3 ml INH PRN PRN Sodium Chloride Rt Leyda 0.9% [NS Rt Leyda 0.9%] Med 06/19/25 09:37 Discontinued 3 ml INH PRN PRN Sodium Chloride Rt Leyda 0.9% [NS Rt Leyda 0.9%] Med 06/19/25 09:37 Discontinued 3 ml INH PRN PRN Vital Signs Vital signs: Vital Signs Temperature 99.5 F 06/19/25 08:59 Pulse Rate 115 H 06/19/25 08:59 Respiratory Rate 18 06/19/25 08:59 Blood Pressure 117/81 06/19/25 08:59 Pulse Oximetry (%) 96 06/19/25 08:59 Oxygen Delivery Method Room Air 06/19/25 08:59 Discharge Plan Plan Patient Disposition: HOME (Self Care) Patient condition on transfer: Stable Prescriptions/Referrals Prescriptions/Med Rec: New benzonatate 100 mg capsule 100 mg PO TID PRN (Reason: cough) 7 Days Qty: 21 0RF No Action ibuprofen 800 mg tablet 800 mg PO Q6H PRN (Reason: pain) Qty: 14 0RF Janumet 50-1,000 mg tablet 1 tab PO BID Referrals: John Carr PA-C [Primary Care Provider] - In 1 week Problem List Clinical Impression: Pulmonary cavitary lesion Patient/Caregiver Discharge Instructions Additional Instructions: [place] benzonatato 100 mg por v?a oral calin veces al d?a para la tos. Consulte con [facility]?dico de cabecera en un plazo de 3 d?as y p?ace que revise los hallazgos de la radiograf?a de t?rax, en la que se observa do lesi?n nodular preocupante de 2,2 cm que jones aumentado de nery?o. Necesitar? do tomograf?a computarizada (TC) para evaluar la lesi?n mencionada. Print Language: Cambodian Stand Alone Forms: [employer] Award Info., Patient Portal Info Letter MDM Narrative MDM hospital course (for use when minimal MDM required): HPI: 44-year-old female past medical history of type 2 diabetes, cavitary lesion of the lung with unknown etiology presenting to the ED on 06/19 for shortness of breath and cough. Patient's son at bedside to corroborate her story. Apparently patient started developing worsening cough and shortness of breath late last night. She also states that she has been having night sweats every night but denies having any significant weight loss at this time. She is aware that in the past she has been told she has a cavitary mass but cocci and tuberculosis were ruled out on past admission. She denies having any chest pain, palpitations but does state that she has a nagging cough which is bothering her. On examination, please refer to the physical exam above; patient presented normotensive 117/81, tachycardic with a heart rate of 115, respiratory rate of 18, afebrile 99 point degrees Fahrenheit and saturating 96 on room air. Pertinent lab findings included CBC which was largely unremarkable WBC of 8.5, hemoglobin of 12.7, CMP did show some mild hyponatremia sodium 135, no endorgan dysfunction noted, hyperglycemia with a glucose of 374, lactic acid of 2.7, LFTs within normal limits. Urinalysis showed glucosuria and some RBCs but otherwise negative for infection. EKG showed sinus tachycardia without any concerning ST changes noted. Checks x-ray was concerning for 2.2 cm nodular lesion which has apparently changed significantly and has enlarged from past imaging findings. Gallbladder ultrasound ordered from different provider shows cholelithiasis negative for cholecystitis and moderate hepatomegaly. #Shortness of breath #Likely secondary to pulmonary mass Patient's been having night sweats, shortness of breath worsening along with imaging findings as described above Lactic acidosis likely related secondary to the mass versus hyperglycemia as above Breathing treatments initiated Lactic acid downtrended after 1L bolus; likely type-B acidosis from possible malignant mass as seen on chest xr Plan: Advised patient for urgent follow-up with primary care physician so that they can order CT scan Will discharge patient on benzonatate for symptomatic cough without any concerning factious etiology noted. Patient seen and assessed with attending Dr. Juliana Hayward, DO PGY-2 Internal Medicine - GME Medication Administration(s) Medication Administration History Discontinued Medications Acetaminophen (Acetaminophen 500 Mg Tablet) 1,000 mg PO X1 ONE Stop: 06/19/25 09:33 Last Admin: 06/19/25 10:16 Dose: 1,000 mg Documented By: JOAN Albuterol (Albuterol Rt 2.5 Mg/0.5 Ml Nebu) 2.5 mg INH X1 ONE Stop: 06/19/25 09:38 Last Admin: 06/19/25 11:03 Dose: 2.5 mg Documented By: LOYD Benzonatate (Benzonatate 100 Mg Capsule) 100 mg PO X1 ONE; Protocol Stop: 06/19/25 11:07 Last Admin: 06/19/25 11:42 Dose: 100 mg Documented By: JOAN Sodium Chloride (Ns) 1,000 mls @ 999 mls/hr IV .Q1H1M ONE Stop: 06/19/25 10:32 Last Infusion: 06/19/25 12:50 Dose: Infused Documented By: Admin: 06/19/25 11:43 Dose: 999 mls/hr Documented By: JOAN Ipratropium [place] (Ipratropium Rt 0.5 Mg/ 2.5 Ml Nebu) 0.5 mg INH X1 ONE Stop: 06/19/25 09:38 Last Admin: 06/19/25 11:03 Dose: 0.5 mg Documented By: LOYD Sodium Chloride (Sodium Chloride Rt Leyda 0.9% 3 Ml Nebu) 3 ml INH PRN PRN PRN Reason: SOLN Stop: 07/19/25 09:36 Sodium Chloride (Sodium Chloride Rt Leyda 0.9% 3 Ml Nebu) 3 ml INH PRN PRN PRN Reason: SOLN Stop: 07/19/25 09:36 Sodium Chloride (Sodium Chloride Rt Leyda 0.9% 3 Ml Nebu) 3 ml INH PRN PRN PRN Reason: SOLN Stop: 07/19/25 09:36
[2025-06-19 11:03] VITALS: PULSE 115
[2025-06-19] MEDS: ALBUTEROL RT 2.5 MG/0.5 ML NEBU INH (11:03)
[2025-06-19] MEDS: IPRATROPIUM RT 0.5 MG/ 2.5 ML NEBU INH (11:03)
[2025-06-19 11:07] VITALS: PULSE 120; RESP 24; O2SAT 98
[2025-06-19 11:08] LABS: Bilirubin,Urine Negative (Negative); Blood,Urine 2+ (Negative); Clarity,Urine Clear (Clear/Hazy); Color,Urine Lt-Yellow (Lt Yel-Yel); Culture Indicated,Urine Not Indicated; Glucose, Urine 4+ (Negative); Hyaline Casts,Urine < 1 /hpf (0-1); Ketones,Urine Negative (Negative); Leukocyte Esterase,Urine Negative (Negative); Nitrite,Urine Negative (Negative); PH,Urine 6.5 (5.0-7.0); Protein,Urine Negative (Neg - Trace); RBC,Urine 54 /hpf (0-3); Specific Gravity,Urine 1.043 (1.001-1.035); Squamous Epithelial Cell,Urine 2 /hpf (0-5); Urobilinogen,Urine Negative mg/dL (0.0-1.0); WBC,Urine 3 /hpf (0-5)
[2025-06-19] MEDS: BENZONATATE 100 MG CAPSULE PO (11:42)
[2025-06-19] MEDS: SODIUM CHLORIDE 0.9% 1000 ML 1,000 ML 999 ML IV (11:43)
[2025-06-19 11:52] VITALS: BP 110/69; PULSE 111; RESP 20; TEMP 37; O2SAT 97
[2025-06-19 12:48] LABS: Lactate (Lactic Acid) 1.9 mMol/L (0.4-2.0)
[2025-06-19 12:49] VITALS: BP 114/74; PULSE 105; RESP 18; TEMP 36.8; O2SAT 99
[2025-06-19 13:03] LABS: Reflex Lactate? Y
== END 2025-06-19 13:40 | disposition home or self-care (01) ==
PROVIDERS: Physician Assistant; Emergency Provider Family Medicine; PCP Physician Assistant
DX: J98.4 Other disorders of lung (principal); K80.20 Calculus of gallbladder without cholecystitis without obstruction; R16.0 Hepatomegaly, not elsewhere classified; R00.0 Tachycardia, unspecified
CPT/HCPCS: 36415; 71045; 76705; 80053; 81001; 81025; 83605; 83690; 84484; 85025; 85610; 87040; 87502; 93005; 94640; 96360; 99284; J7030; J7602; J7644; A9270; J7611

== ENCOUNTER 2025-07-09 13:26 | Emergency (ER) | payer MEDICAID, SELFPAY ==
[2025-07-09] VITALS (7 sets, daily range): BP systolic 111–154; BP diastolic 74–93; PULSE 96–121; RESP 16–22; TEMP 36.6–37.2; O2SAT 95–100; BMI 21.7
--- NOTE | 2025-07-09 14:07 | XR_ITS ---
Examination: CTA chest with intravenous contrast 2-D reconstructions 3-D reconstructions, vascular Date and time of exam: July 09, 2025, 1634 hours INDICATIONS: Coughing chest pain shortness of breath today tachycardia CTDI: vol (mGy) 9.29 DLP: (mGycm) 232 Technique: Multiple axial sections of the thorax have been obtained. 3 mm slice thickness, from below the hemidiaphragms to above the apices of the lungs. Mediastinal and lung density settings have been obtained. 2-D sagittal and coronal reconstructions. 3-D angiographic renderings, 3-D volume renderings, 3D post processing, vascular maximum intensity projections obtained. Contrast administered is 100 cc Isovue-370. Low dose protocols were performed. One or more of the following dose reduction techniques were used; automated exposure control, adjustment of the mA and/or KV according to patient size, use of iterative reconstruction technique. Findings: 14 mm left thyroid nodule No thoracic aortic aneurysm dilatation or dissection No pulmonary artery filling defects Mild left hilar lymphadenopathy Extensive parenchymal disease throughout the left lung with thick walled cavitary lesion in the posterior segment of the left upper lobe, 6.9 x 4.3 cm Miliary nodular type pneumonia in the right upper lobe in addition Liver is enlarged partly visualized with irregular contour Cholelithiasis Spleen is not enlarged No pancreatic mass IMPRESSION: 14 mm left thyroid nodule Negative for pulmonary artery emboli Mild left hilar lymphadenopathy Extensive pneumonia left lung Thick walled cavitary lesion posterior segment left upper lobe 6.9 x 4.3 cm Miliary nodular pneumonia in the right upper lobe Highest on the differential listed is infectious processes including active tuberculosis, the thick walled cavitary lesion less likely pulmonary neoplasm but not excluded Cholelithiasis
--- NOTE | 2025-07-09 14:07 | XR_ITS ---
EXAMINATION: AP chest single view TECHNIQUE: AP portable upright chest single view Date and time: July 09, 2025, 1408 hours, comparison June 19, 2021 5 INDICATIONS: Shortness of breath cough and chest pain today. FINDINGS: Again noted cavitary lesion left upper lobe, currently measuring 4.5 cm Pneumonia diffusely in the left lung Right lung clear Normal heart size IMPRESSION: Large cavitary lesion thick-walled left upper lobe, differential would include infectious and pulmonary neoplastic nodule Diffuse left lung pneumonia
--- NOTE | 2025-07-09 14:07 | EKG_ITS ---
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
--- NOTE | 2025-07-09 14:09 | EDNOTE_ITS ---
ED SOB =RME/HPI General Chief Complaint: Shortness of Breath/Dyspnea Stated Complaint: COUGH, SOB Time Seen by Provider: 07/09/25 13:49 Arrival date/time: 07/09/25 13:26 RME / HPI RME / HPI Narrative: See [facility] for Dr. Catalan's HPI documentation. Related Data Home Medications ?Medication ?Instructions ?Recorded ?Confirmed sitagliptin phosphate 50 1 tab PO BID 08/19/24 mg-metformin 1,000 mg tablet (Janumet) Previous Rx's ?Medication ?Instructions ?Recorded ibuprofen 800 mg tablet 800 mg PO Q6H PRN pain #14 t abs 05/17/25 acetaminophen 300 mg-codeine 30 mg 2 tab PO Q8H PRN pa in #20 tabs 07/09/25 tablet albuterol sulfate 90 mcg/actuation 2 puff inhalation Q 6H PRN 07/09/25 aerosol inhaler shortness of breath or wheez ing #8.5 grams azithromycin 500 mg tablet 500 mg PO QDAY 3 days #3 ta bs 07/09/25 (Zithromax TRI-LINDY) cefdinir 300 mg capsule 300 mg PO BID #14 caps 07/09 prednisone 50 mg tablet 50 mg PO BID 3 days #6 tabs 07/09/25 Allergies Allergy/AdvReac Type Severity Reaction Status Date / Time vancomycin Allergy Severe Rash Verified 07/09/25 13:29 Review of Systems Review of Systems Systems Reviewed: All systems reviewed, normal except as documented Past Medical History Past Medical History GENITOURINARY: Positive Renal Disease ENDOCRINE: Positive Endocrine Disorders and Diabetes Mellitus Type 2 OTHER HISTORY: Positive Falls Family History FAMILY HISTORY: Negative Family Psychiatric Problems, Family Respiratory Disorde rs, Family Cardiac Disorders, Family Gastrointestinal Problems or Family Cancer Social History SMOKING STATUS: Never smoker SECOND HAND EXPOSURE: No ED Exam Narrative Physical exam: See [facility] for Dr. Catalan's physical exam documentation. Course Quality Measures none Orders Category Date Time Status Bedside COVID-19 Antigen Test NOW Care 07/09/25 14:06 Completed Bedside Influenza A&B Antigen Test NOW Care 07/09/25 14:[address] Screening NOW Care 07/09/25 14:07 Completed EKG (ED ONLY) *Do not use* NOW Care 07/09/25 14:07 Completed Saline [Insert IV] NOW Care 07/09/25 14:[address] angio chest Stat Exams 07/09/25 14:07 Completed EKG (ED Only) Stat Exams 07/09/25 14:07 Draft XR chest 1V portable Stat Exams 07/09/25 14:07 Completed Alcohol, Blood Medical Stat Lab 07/09/25 14:33 Completed BNP [B-Type Natriuretic Peptide] Stat Lab 07/09/25 14:33 Completed Bilirubin,Direct Stat Lab 07/09/25 14:33 Completed CBC Stat Lab 07/09/25 14:33 Completed CMP [Comprehensive Metabolic Panel] Stat Lab 07/09/25 14:33 Completed CRP [C-Reactive Protein] Stat Lab 07/09/25 14:33 Completed Cocci Serology IgM with reflex to IgG [Cocci Serology, Lab 07/09/25 14:33 Completed Unk History] Stat Cocid Sro, CF/ID (UCD) NO CHG* Routine Lab 07/10/25 13:38 Received D-Dimer Stat Lab 07/09/25 14:33 Completed Drug Screen,Urine Stat Lab 07/09/25 14:46 Completed ESR [Sed Rate (ESR)] Stat Lab 07/09/25 14:33 Completed HCG,Qualitative Serum Stat Lab 07/09/25 14:33 Completed Hemoglobin A1C [Glycohemoglobin w (eAG)] Stat Lab 07/09/25 14:33 Completed Magnesium Stat Lab 07/09/25 14:33 Completed Procalcitonin Stat Lab 07/09/25 14:33 Completed TSH [Thyroid Stimulating Hormone] Stat Lab 07/09/25 14:33 Completed Troponin I Stat Lab 07/09/25 14:33 Completed UA, C/S IF [Urinalysis, C/S if Indicated] Stat Lab 07/09/25 14:37 Completed ACETAMINOPHEN w/COD 300-30 [Tylenol w/Cod #3] Med 07/09/25 14:06 Discontinued 2 tab PO X1 ONE Albuterol/Ipratr Rt Leyda [Duoneb Rt Leyda] Med 07/09/25 14:06 Discontinued 3 ml INH X1 ONE Azithromycin Po [Zithromax PO] Med 07/09/25 17:33 Discontinued 500 mg PO X1 ONE DiphenhydrAMINE INJ [Benadryl Inj] Med 07/09/25 14:06 Discontinued 50 mg IVP X1 STA Insulin Regular Med 07/09/25 15:19 Discontinued 5 unit IV X1 ONE Ketorolac Inj [Toradol Inj] Med 07/09/25 14:06 Discontinued 30 mg IVP X1 ONE MethylPREDNISolone.* [SoluMEDROL Inj] Med 07/09/25 14:06 Discontinued 125 mg IVP X1 ONE Metoprolol Tartrate [Lopressor] Med 07/09/25 15:17 Discontinued 75 mg PO X1 ONE Ondansetron Inj [Zofran Inj] Med 07/09/25 14:06 Discontinued 4 mg IVP X1 ONE Sodium Chloride 0.9% 1000 ml [Ns] 1,000 ml Med 07/09/25 14:06 Discontinued IV 999 mls/hr cefTRIAXone/D5w 1gm IV premix [Rocephin/D5w 1gm IV Med 07/09/25 17:33 Discontinued premix] 1 gm in 50 ml IV X1 Vital Signs Vital signs: Vital Signs Temperature 97.9 F 07/09/25 13:42 Pulse Rate 98 07/09/25 13:42 Respiratory Rate 18 07/09/25 13:42 Blood Pressure 122/84 07/09/25 13:42 Pulse Oximetry (%) 95 07/09/25 13:42 Oxygen Delivery Method Room Air 07/09/25 13:42 Pulse ox is 95% on room air which is adequate. Shortness of Breath / Dyspnea MDM Narrative MDM Narrative:: This section includes all my notes and documentations, including HPI, PE, and ED course. Ridge Catalan MD HPI: 44-year-old female here with a couple week history of worsening cough, product nicholas cough, purulent sputum, and dyspnea. No other complaints. ROS: All negative except as documented in HPI. Physical Exam: General: Alert and oriented. Hacking cough noted. High BP noted. Eyes: Conjunctivae and lids clear. ENT: No nasal congestion. Pharynx normal. TM normal bilaterally. Neck: Supple. Heart: RRR. Lungs: No respiratory distress. Decreased air movement with diffuse rhonchi. Abdomen: Soft and nontender. Skin: Warm and dry. Neuro: Alert and oriented X 3. I reviewed all diagnostic test results: My interpretation of the EKG: NSR (96 bpm) with no ST-T changes. My review of the chest x-ray report is: Large cavitary lesion thick-walled left upper lobe, diffuse left lung pneumonia. My review of the chest CT report is: Extensive pneumonia left lung, Thick walled cavitary lesion posterior segment left upper lobe. Blood tests and urine tests unremarkable, except glucose 310. Covid/Influenza are negative. At this point, diagnoses include: Pneumonia Treatment here included: IVF Toradol 30 mg IV Zofran 4 mg IV Two Tylenol #3 Solumedrol 125 mg IV Albuterol neb treatment Metoprolol 75 mg PO Regular insulin 5 units IV Significant improvement noted. Recommended admission for further care. Patient requested leaving. Discussed potential risks, including worsening and sudden . Patient understood the risks and is willing to take the risks. We couldn't change hermind. Patient signed AMA form and left AGAINST MEDICAL ADVICE. Recommended outpatient follow-up. Based on my best medical judgment, made decision no further evaluation or treatment indicated at this time.? Patient understands and agrees to the discharge instructions customized and printed, see below. Instrucciones de alvin del Dr. Catalan: -- Dado que rechaz? la hospitalizaci?n, se le da de alvin para que regrese a casa. -- Evite el esfuerzo f?sico darion 3 d?as para facilitar la recuperaci?n de los pulmones. -- Evite fumar, la exposici?n al humo del tabaco, las mascotas, el polvo, el fr?o y la humedad. -- [place] Zithromax y cefdinir para eliminar los g?rmenes que causan la neumon?a. -- [place] prednisona para reducir la inflamaci?n de las v?as respiratorias. -- Use albuterol, 2 inhalaciones cada 4-6 horas darion 3 d?as (seg?n lo programado) para mantener las v?as respiratorias abiertas. Luego, ?selo seg?n sea necesario para la tos o la dificultad para respirar. -- [place] Tylenol con code?na para la tos intensa o el dolor intenso. -- Consulte con un m?dico particular el 2 2025 para do revisi?n. Solicite revisar todos los resultados de las pruebas e informes radiol?gicos oficiales para asegurarse de recibir el seguimiento y la monitorizaci?n necesarios. Pida ayuda hasta que se recupere por completo. Solicite do prueba de tuberculosis. Solicite do derivaci?n a un neum?logo para descartar otras afecciones graves, allyssa c?ncer de pulm?n. -- Busque atenci?n m?dica de inmediato si nya s?ntomas empeoran o si tiene algun a inquietud. Discharge instructions from Dr. Catalan: -- Since you declined hospitalization, you are being discharged home. -- No physical exertion for 3 days to help rest the lungs. -- No smoking or exposure to smoking or pets or dust or cold or humidity. -- Zithromax and cefdinir to kill the germs causing the pneumonia. -- Prednisone to help decrease the swelling in the airways. -- Albuterol 2 puffs every 4-6 hours for 3 days SCHEDULED to help keep the airways open. Then as needed for cough or shortness of breath. -- Tylenol with codeine for severe cough for severe pain. -- See a private doctor on 07/11/2025 for recheck. Ask to review all test results and official radiology reports, to make sure you receive all necessary follow-ups and monitoring. Ask for help until you are completely better. Ask for testing for TB. Ask for referral to see lung specialist, to make sure there is no other serious condition, such as lung cancer. -- Seek immediate medical care with worsening or with any concerns. Ridge Catalan MD Patient data External records reviewed:: [facility] previous records Clinical information provided by:: patient Social determinants that could affect healthcare access:: none Patient has the following chronic illnesses:: Diabetes How is presenting disease/condition affected by chronic disease/condition?: uneffected by Evaluation data The following diagnostics were reviewed and interpreted by me:: lab results, radiology exam(s) and EKG tracing(s) (My interpretation of the EKG: NSR (96 bpm) with no ST-T changes. Ridge Catalan MD) Lab and/or radiology exams considered but not ordered:: None Interpretation Summary: I reviewed all diagnostic test results: My interpretation of the EKG: NSR (96 bpm) with no ST-T changes. My review of the chest x-ray report is: Large cavitary lesion thick-walled left upper lobe, diffuse left lung pneumonia. My review of the chest CT report is: Extensive pneumonia left lung, Thick walled cavitary lesion posterior segment left upper lobe. Blood tests and urine tests unremarkable, except glucose 310. Covid/Influenza are negative. Medications / Prescriptions Medications or Prescriptions considered but not ordered:: None Medication administrations:: Medication Administration History Discontinued Medications Acetaminophen/Codeine Phosphate (Acetaminophen W/Cod 300-30 Tablet) 2 tab PO X1 ONE Stop: 07/09/25 14:07 Last Admin: 07/09/25 15:02 Dose: 2 tab Documented By: ANDREA Albuterol/Ipratropium (Albuterol/Ipratropium (Duoneb) Rt Leyda 3 Ml Nebu) 3 ml INH X1 ONE Stop: 07/09/25 14:07 Last Admin: 07/09/25 15:24 Dose: 3 ml Documented By: GIRMA Azithromycin (Azithromycin 250 Mg Tablet) 500 mg PO X1 ONE Stop: 07/09/25 17:34 Last Admin: 07/09/25 17:52 Dose: 500 mg Documented By: JAMES Diphenhydramine HCl (Diphenhydramine Inj 50 Mg/Ml Vial) 50 mg IVP X1 STA Stop: 07/09/25 14:07 Last Admin: 07/09/25 15:03 Dose: 50 mg Documented By: ANDREA Sodium Chloride (Ns) 1,000 mls @ 999 mls/hr IV .Q1H1M ONE Stop: 07/09/25 15:06 Last Infusion: 07/09/25 16:10 Dose: Infused Documented By: Admin: 07/09/25 15:03 Dose: 999 mls/hr Documented By: ANDREA Ceftriaxone Sodium/Dextrose (Rocephin/D5w 1gm Iv Premix) 1 gm in 50 mls @ 100 mls/hr IV X1 ONE Stop: 07/09/25 18:02 Last Infusion: 07/09/25 18:24 Dose: Infused Documented By: Admin: 07/09/25 17:53 Dose: 100 mls/hr Documented By: JAMES Insulin Human Regular (Insulin Hum Regular 1 Unit/0.01 Ml (Per Unit)) 5 unit IV X1 ONE Stop: 07/09/25 15:20 Last Admin: 07/09/25 15:39 Dose: 5 unit Documented By: ANDREA Co-signed By: YELITZA Comments: OK TO GIVE IV PER DR CATALAN Ketorolac Tromethamine (Ketorolac Inj 30 Mg/Ml Vial) 30 mg IVP X1 ONE Stop: 07/09/25 14:07 Last Admin: 07/09/25 15:02 Dose: 30 mg Documented By: ANDREA Methylprednisolone Sodium Succinate (Methylprednisolone Sod Succ 62.5 Mg/Ml 2ml Vial) 125 mg IVP X1 ONE Stop: 07/09/25 14:07 Last Admin: 07/09/25 15:03 Dose: 125 mg Documented By: ANDREA Metoprolol Tartrate (Metoprolol Tartrate 25 Mg Tablet) 75 mg PO X1 ONE Stop: 07/09/25 15:18 Last Admin: 07/09/25 15:39 Dose: 75 mg Documented By: ANDREA Ondansetron HCl (Ondansetron Inj 2 Mg/Ml Inj 2 Ml) 4 mg IVP X1 ONE; Protocol Stop: 07/09/25 14:07 Last Admin: 07/09/25 15:02 Dose: 4 mg Documented By: ANDREA Treatment here included: IVF Toradol 30 mg IV Zofran 4 mg IV Two Tylenol #3 Solumedrol 125 mg IV Albuterol neb treatment Metoprolol 75 mg PO Regular insulin 5 units IV Consultations Consultation(s) initiated? (list below): No Diagnosis Shortness of Breath Differential Diagnosis: acute exacerbation of chronic obstructive airways disease, congestive heart failure, community acquired pneumonia, asthma with exacerbation and pulmonary embolism Most likely diagnosis given after review of the tests above:: At this point, diagnoses include: Pneumonia Admission Indicated Admission indicated?: not indicated Explain why admission is indicated or not indicated:: Recommended admission for further care. Patient requested leaving. Discussed potential risks, including worsening and sudden . Patient understood the risks and is willing to take the risks. We couldn't change hermind. Patient signed AMA form and left AGAINST MEDICAL ADVICE. Admission Request Was there a request for admission?: No Disposition Plan Disposition Plan: Discharge Discharge Attestation Discharge Attestation: The patient and all family members were given an opportunity to ask questions and understood the discharge instructions. Discharge instructions specifically effects, indications for sooner follow up or return to the emergency department, and the expected course of current diagnosis. Patient condition: Stable Discharge Plan Plan Patient Disposition: HOME (Self Care) Prescriptions/Referrals Prescriptions/Med Rec: New acetaminophen-codeine 300-30 mg tablet 2 tab PO Q8H MDD 6 PRN (Reason: pain) Qty: 20 0RF prednisone 50 mg tablet 50 mg PO BID 3 Days Qty: 6 0RF albuterol sulfate 90 mcg/actuation HFA aerosol inhaler 2 puff inhalation Q6H PRN (Reason: shortness of breath or wheezing) Qty: 8.5 0RF cefdinir 300 mg capsule 300 mg PO BID Qty: 14 0RF azithromycin [Zithromax TRI-LINDY] 500 mg tablet 500 mg PO QDAY 3 Days Qty: 3 0RF No Action ibuprofen 800 mg tablet 800 mg PO Q6H PRN (Reason: pain) Qty: 14 0RF Janumet 50-1,000 mg tablet 1 tab PO BID Referrals: Rui Lam MD [Primary Care Provider, Family Practice] - In 1 week Problem List Clinical Impression: Pneumonia Patient/Caregiver Discharge Instructions Discharge Activity: activity as tolerated Education Materials: ED Pneumonia (Adult) Additional Instructions: Instrucciones de alvin del Dr. Catalan: -- Dado que rechaz? la hospitalizaci?n, se le da de alvin para que regrese a casa. -- Evite el esfuerzo f?sico darion 3 d?as para facilitar la recuperaci?n de los pulmones. -- Evite fumar, la exposici?n al humo del tabaco, las mascotas, el polvo, el fr?o y la humedad. -- [place] Zithromax y cefdinir para eliminar los g?rmenes que causan la neumon?a. -- [place] prednisona para reducir la inflamaci?n de las v?as respiratorias. -- Use albuterol, 2 inhalaciones cada 4-6 horas darion 3 d?as (seg?n lo programado) para mantener las v?as respiratorias abiertas. Luego, ?selo seg?n sea necesario para la tos o la dificultad para respirar. -- [place] Tylenol con code?na para la tos intensa o el dolor intenso. -- Consulte con un m?dico particular el 2 de 2025 para do revisi?n. Solicite revisar todos los resultados de las pruebas e informes radiol?gicos oficiales para asegurarse de recibir el seguimiento y la monitorizaci?n necesarios. Pida ayuda hasta que se recupere por completo. Solicite do prueba de tuberculosis. Solicite do derivaci?n a un neum?logo para descartar otras afecciones graves, allyssa c?ncer de pulm?n. -- Busque atenci?n m?dica de inmediato si nya s?ntomas empeoran o si tiene alguna inquietud. Discharge instructions from Dr. Catalan: -- Since you declined hospitalization, you are being discharged home. -- No physical exertion for 3 days to help rest the lungs. -- No smoking or exposure to smoking or pets or dust or cold or humidity. -- Zithromax and cefdinir to kill the germs causing the pneumonia. -- Prednisone to help decrease the swelling in the airways. -- Albuterol 2 puffs every 4-6 hours for 3 days SCHEDULED to help keep the airways open. Then as needed for cough or shortness of breath. -- Tylenol with codeine for severe cough for severe pain. -- See a private doctor on 07/11/2025 for recheck. Ask to review all test results and official radiology reports, to make sure you receive all necessary follow-ups and monitoring. Ask for help until you are completely better. Ask for testing for TB. Ask for referral to see lung specialist, to make sure there is no other serious condition, such as lung cancer. -- Seek immediate medical care with worsening or with any concerns. Print Language: [place] Stand Alone Forms: [employer] Info., Patient Portal Info Letter
[2025-07-09 14:47] LABS: Basophils # (Auto) 0.1 Thou/mm3 (0.0-0.2); Basophils % (Auto) 1 % (0-2.5); Eosinophils # (Auto) 0.4 Thou/mm3 (0.0-0.5); Eosinophils % (Auto) 3 % (0-10); Hematocrit 33.8 % (36.0-46.0); Hemoglobin 11.5 g/dL (12.0-16.0); Immature Granulocytes Auto 0.04 Thou/mm3 (0.00-0.00); Lymphocytes # (Auto) 1.6 Thou/mm3 (1.0-4.8); Lymphocytes % (Auto) 15 % (10-50); Mean Corpuscular HGB Conc 34.0 g/dl (31.0-37.0); Mean Corpuscular Hemoglobin 30.2 pg (25.0-35.0); Mean Corpuscular Volume 89 fL (80-100); Monocytes # (Auto) 0.5 Thou/mm3 (0.0-0.8); Monocytes % (Auto) 5 % (0-12); Neutrophils # (Auto) 7.8 Thou/mm3 (1.8-7.7); Neutrophils % (Auto) 76 % (37-80); Nucleated Red Blood Cell # 0.00 Thou/mm3 (0.00-0.00); Nucleated Red Blood Cell % 0 /100 WBC (0); Platelet Count 276 Thou/mm3 (140-440); RDW Standard Deviation 39.6 fL (36.4-46.3); Red Blood Count 3.81 Miln/mm3 (4.00-5.20); White Blood Count 10.3 Thou/mm3 (3.6-11.0)
[2025-07-09 14:48] LABS: Collection Type, Urine Clean Catch
[2025-07-09 15:00] LABS: Glucose Estimated Average 240 mg/dL (80-131); Hemoglobin A1C 10.0 % Hgb (4.8-6.0)
[2025-07-09] MEDS: ACETAMINOPHEN w/COD 300-30 TABLET 2 TAB PO (15:02)
[2025-07-09] MEDS: ONDANSETRON INJ 2 MG/ML INJ 2 ML 4 MG IVP (15:02)
[2025-07-09] MEDS: KETOROLAC INJ 30 MG/ML VIAL IVP (15:02)
[2025-07-09 15:03] LABS: Bilirubin,Urine Negative (Negative); Blood,Urine Negative (Negative); Clarity,Urine Clear (Clear/Hazy); Color,Urine Colorless (Lt Yel-Yel); Culture Indicated,Urine Not Indicated; Glucose, Urine 3+ (Negative); Ketones,Urine Negative (Negative); Leukocyte Esterase,Urine Positive (Negative); Nitrite,Urine Negative (Negative); PH,Urine 6.5 (5.0-7.0); Protein,Urine Negative (Neg - Trace); RBC,Urine < 1 /hpf (0-3); Specific Gravity,Urine 1.004 (1.001-1.035); Squamous Epithelial Cell,Urine < 1 /hpf (0-5); Urobilinogen,Urine Negative mg/dL (0.0-1.0); WBC,Urine < 1 /hpf (0-5)
[2025-07-09 15:03] LABS: D-Dimer < 250 ng/mL (<600)
[2025-07-09] MEDS: SODIUM CHLORIDE 0.9% 1000 ML 1,000 ML 999 ML IV (15:03)
[2025-07-09] MEDS: MethylPREDNISolone SOD SUCC 62.5 MG/ML 2ML VIAL 125 MG IVP (15:03)
[2025-07-09 15:04] LABS: Sed Rate (ESR) 93 mm/hr (0-20)
[2025-07-09 15:05] LABS: B-Type Natriuretic Peptide 27 pg/mL (0-100)
[2025-07-09 15:05] LABS: Amphetamine/Methamp Scrn,U Negative (Negative); Barbiturate Screen,Urine Negative (Negative); Benzodiazepines Screen,Urine Negative (Negative); Benzoylecgonine Screen, Ur Negative (Negative); Fentanyl Screen,Urine Negative (Negative); Opiate Screen,Urine Negative (Negative); THC Screen,Urine Negative (Negative)
[2025-07-09 15:15] LABS: Alanine Aminotransferase 16 U/L (10-49); Albumin, Serum 4.2 gm/dL (3.5-5.0); Albumin/Globulin Ratio 1.1 (1.2-2.2); Alcohol, Blood Medical < 3.0 mg/dL (0-10.0); Alkaline Phosphatase 105 U/L (46-116); Anion Gap 9 (7-16); Aspartate Amino Transferase 10 U/L (0-34); BUN/Creatinine Ratio 8 Ratio (12-20); Bilirubin,Direct < 0.1 mg/dL (0.0-0.3); Bilirubin,Total 0.3 mg/dL (0.3-1.2); Blood Urea Nitrogen < 5 mg/dL (9-23); C-Reactive Protein 7.6 mg/dL (0.0-0.9); Calcium 9.4 mg/dL (8.3-10.6); Calcium (Corrected) 9.4 mg/dL (8.5-10.1); Carbon Dioxide 23.6 mMol/L (20.0-31.0); Chloride 101 mMol/L (98-107); Creatinine (Component) 0.6 mg/dL (0.6-1.3); Estimated Creatinine Clearance 101.0 mL/min (>60); Globulin 3.7 gm/dL (2.3-3.5); Glucose 310 mg/dL (74-106); Magnesium 1.8 mg/dL (1.6-2.6); Osmolality,Calculated 277 (275-295); Potassium 3.8 mMol/L (3.4-5.1); Procalcitonin < 0.04 ng/ml (0.0-0.49); Sodium 134 mMol/L (136-145); Thyroid Stimulating Hormone 0.70 uIU/mL (0.55-4.78); Total Protein 7.9 gm/dL (5.7-8.2); Troponin I < 0.002 ng/mL (0.0-0.045); eGFR > 60 See Note
[2025-07-09] MEDS: ALBUTEROL/IPRATROPIUM (Duoneb) RT SOL 3 ML NEBU INH (15:24)
[2025-07-09 15:31] LABS: HCG,Qualitative Serum Negative
[2025-07-09] MEDS: INSULIN HUM REGULAR 1 UNIT/0.01 ML (PER UNIT) 5 UNIT IV (15:39)
[2025-07-09] MEDS: METOPROLOL TARTRATE 25 MG TABLET 75 MG PO (15:39)
--- NOTE | 2025-07-09 16:50 | PC.NURSE ---
REPORT RECEIVED AND CARE ASSUMED. INFORMED THAT PT HERE WITH COUGH AND SOB. PT IN CT AND AWAITING RESULTS. POSSIBLE TB ON CHEST XRAY
[2025-07-09] MEDS: AZITHROMYCIN 250 MG TABLET 500 MG PO (17:52)
[2025-07-09] MEDS: cefTRIAXone/D5w 1gm IV premix 1 GM/50 ML BAG IV (17:53)
[2025-07-10 13:38] LABS: Cocci Serology, IgM Positive (Negative)
[2025-07-10 13:38] LABS: Cocid Sro, CF/ID (UCD) NO CHG* See Sep Rpt
== END 2025-07-09 18:37 | disposition home or self-care (01) ==
PROVIDERS: Emergency Provider Emergency Medicine; PCP Family Medicine
DX: J18.9 Pneumonia, unspecified organism (principal)
CPT/HCPCS: 36415; 71045; 71275; 80053; 80307; 80320; 81001; 82248; 83036; 83735; 83880; 84145; 84443; 84484; 84703; 85025; 85379; 85652; 86140; 86480; 86635; 87502; 87635; 93005; 94640; 96361; 96365; 96375; 99285; A4649; A9270; J0696; J1200; J1815; J1885; J2405; J2919; J7030; Q9967; G0480